=== PATIENT | male | born 1965 | race Two or more races ===

== ENCOUNTER 2021-06-15 10:02 | Outpatient (REF) | payer OTHER, SELFPAY ==
[2021-06-15 13:36] LABS: MANUAL DIFF FLAG NO
[2021-06-15 13:51] LABS: Basophils Percent Auto 0.4 % (0-2); Eosinophils Absolute Auto 0.1 X10*3/uL (0.0-0.4); Eosinophils Percent Auto 1.4 % (0-4); Hematocrit 44.3 % (42-52); Hemoglobin 14.3 g/dl (14.0-18.0); Imm Gran Abs Auto 0.01 X10*3/uL (0.00-0.03); Imm Gran Pct Auto 0.1 % (0.0-0.4); Lymphocytes Percent Auto 28.3 % (20-40); Mean Corpuscular HGB Conc 32.3 g/dl (31.0-36.0); Mean Corpuscular Hemoglobin 28.3 pg (27.0-33.0); Mean Corpuscular Volume 87.7 fL (80-98); Mean Platelet Volume 12.3 fL (9.4-12.4); Monocytes Absolute Auto 0.6 X10*3/uL (0.1-1.2); Monocytes Percent Auto 7.8 % (2-11); Neutrophils Absolute Auto 4.4 X10*3/uL (2.0-8.3); Platelet Count 215 X10*3/uL (160-400); Red Blood Count 5.05 X10*6/uL (4.60-5.80); Red Cell Distribution Width 12.8 % (11.0-16.0)
[2021-06-15 15:05] LABS: Alanine Aminotransferase 19 U/L (0-40); Albumin Level 4.5 g/dL (3.5-5.0); Alkaline Phosphatase 63 U/L (39-117); Anion Gap 16 (12-20); Aspartate Amino Transferase 18 U/L (5-37); Bilirubin Total 0.6 mg/dL (0.0-1.0); Blood Urea Nitrogen 16 mg/dL (9-16); Calcium 9.8 mg/dL (8.4-10.2); Carbon Dioxide 24 mmol/L (22-29); Chloride 103 mmol/L (96-108); Cholesterol 195 mg/dL; Estimated Glomerular Filt Rate > 60; Glucose Fasting 94 mg/dL (60-99); HDL Cholesterol 43 mg/dL; LDL Cholesterol Calculated 114 mg/dl; Potassium 4.4 mmol/L (3.3-5.1); Sodium 139 mmol/L (135-145); Total Protein 7.5 g/dL (6.5-8.0); Triglycerides 191 mg/dL
== END 2021-06-15 10:03 | disposition home or self-care (01) ==
LOC: HO.10HDL 10:02
PROVIDERS: Visit Provider Internal Medicine
DX: Z00.00 Encounter for general adult medical examination without abnormal findings (principal); E78.2 Mixed hyperlipidemia; I10 Essential (primary) hypertension; M54.16 Radiculopathy, lumbar region
CPT/HCPCS: 36415; 80053; 80061; 85025

== ENCOUNTER 2021-08-10 14:22 | Outpatient (REF) | payer OTHER, SELFPAY ==
[2021-08-10 16:21] LABS: C Reactive Protein 0.18 mg/dL (< or = 0.50); Lipase 34 U/L (8-78)
[2021-08-11 12:14] LABS: H Pylori Breath Test Negative (Negative)
[2021-08-14 17:36] LABS: Transglutaminase Ab IgG <1.0 U/mL; Transglutaminase IgA <1.0 U/mL
== END 2021-08-10 14:23 | disposition home or self-care (01) ==
LOC: HO.LAB 14:22
PROVIDERS: PCP Internal Medicine; Visit Provider Nurse Practitioner Family
DX: R10.11 Right upper quadrant pain (principal); K58.9 Irritable bowel syndrome, unspecified; R14.0 Abdominal distension (gaseous); R19.7 Diarrhea, unspecified; K21.9 Gastro-esophageal reflux disease without esophagitis
CPT/HCPCS: 36415; 83013; 83516; 83690; 86140; 99202

== ENCOUNTER → 2021-09-10 09:50 | Outpatient (BNVA) | payer OTHER, SELFPAY | PROVIDERS: PCP Internal Medicine; Visit Provider Surgery | DX: Z12.11 Encounter for screening for malignant neoplasm of colon (principal) | CPT/HCPCS: 99202 ==

== ENCOUNTER 2021-10-22 08:26 | Outpatient (REF) | payer OTHER, SELFPAY ==
[2021-10-22 10:33] LABS: Blood Urea Nitrogen 20 mg/dL (9-16); Estimated Glomerular Filt Rate > 60
[2021-10-22 11:22] LABS: Folate 17.4 ng/mL (> or = 4.0); Vitamin B12 320 pg/mL (200-900)
[2021-10-26 14:26] LABS: Vitamin D 25-OH, D2 <4 ng/mL; Vitamin D 25-OH, D3 10 ng/mL; Vitamin D 25-OH, Total 10 ng/mL (30-100)
[2021-10-28 18:41] LABS: Pancreatic Elastase-1 >500 mcg/g
== END 2021-10-22 08:27 | disposition home or self-care (01) ==
LOC: HO.LAB 08:26
PROVIDERS: PCP Internal Medicine; Visit Provider Nurse Practitioner Family
DX: R10.11 Right upper quadrant pain (principal); K58.9 Irritable bowel syndrome, unspecified; E55.9 Vitamin D deficiency, unspecified; R19.7 Diarrhea, unspecified
CPT/HCPCS: 36415; 82306; 82565; 82607; 82656; 82746; 84520; 99212

== ENCOUNTER 2021-11-05 06:36 | Outpatient (REF) | payer OTHER, SELFPAY ==
--- NOTE | ~2021-11-05 | CT_ITS ---
EXAMINATION: CT ABDOMEN AND PELVIS WITH CONTRAST CLINICAL INFORMATION: Abdominal pain. COMPARISON: None TECHNIQUE: Multidetector volumetric images were obtained from the superior aspect of the liver through the pubic symphysis following administration 85 mL of Omnipaque 350 intravenous contrast. Sagittal and coronal reformatted images were obtained on the technologist's workstation. Oral contrast: No This CT examination was performed using dose optimization techniques as appropriate, variously including the following: *Automated exposure control *Adjustment of mA and/or kV according to patient size (this includes techniques or standardized protocols for targeted exams where dose is matched to indication/reason for exam; i.e. extremities or head) *Use of iterative reconstruction technique DLP: 359 mGy-cm FINDINGS: LUNG BASES: The lung bases are clear of acute pneumonic process. There is a 2 mm pulmonary nodule right major fissure axial image 4/3 within the right major fissure likely a small intrafissural lymph node. The heart size is normal. LIVER, GALLBLADDER, AND BILIARY TREE: The liver is normal in size, shape, and attenuation. No focal hepatic lesion or biliary ductal dilatation is present. The gallbladder is unremarkable with no evidence of radiopaque gallstones, gallbladder wall thickening, or obvious pericholecystic inflammatory changes. PANCREAS: Unremarkable. SPLEEN: Unremarkable. ADRENAL GLANDS: Unremarkable. KIDNEYS AND URETERS: The kidneys are normal in size, shape, and attenuation. No hydronephrosis, hydroureter, or calculi seen. No perinephric stranding. BLADDER: Unremarkable. GASTROINTESTINAL TRACT: There is scattered stool and gas seen throughout the colon without significant distention. The small bowel loops are normal caliber. There is not cystic mild mural thickening involving the entire duodenum, the eighth flexure and the proximal jejunum. Question duodeno-jejunitis . There are appendix is normal caliber. The stomach is nondistended and appears unremarkable. ABDOMINAL WALL: No significant hernia is appreciated. LYMPH NODES: Normal. VASCULAR: Unremarkable. PELVIC VISCERA: Unremarkable. OSSEOUS STRUCTURES: There is no aggressive lytic or sclerotic process seen. CT/CT abdomen pelvis w con IMPRESSION: Diffuse mural thickening involving duodenum, DJ flexure and the proximal jejunum question small bowel enteritis. Mild constipation. Fleischner guidelines were followed.
[2021-11-05] MEDS: iohexoL 350 MG/ML 100 ML INFUS..BTL 85 ML IV (09:32)
== END 2021-11-05 06:37 | disposition home or self-care (01) ==
LOC: HO.CT 06:36
PROVIDERS: Visit Provider Nurse Practitioner Family
DX: R10.9 Unspecified abdominal pain (principal)
CPT/HCPCS: 74177; Q9967

== ENCOUNTER 2022-01-20 08:33 | Outpatient (REF) | payer OTHER, SELFPAY ==
[2022-01-25 12:25] LABS: Vitamin D 25-OH, D2 55 ng/mL; Vitamin D 25-OH, D3 6 ng/mL; Vitamin D 25-OH, Total 61 ng/mL (30-100)
== END 2022-01-20 08:34 | disposition home or self-care (01) ==
LOC: HO.LAB 08:33
PROVIDERS: PCP Internal Medicine; Referring Provider Internal Medicine; Visit Provider Nurse Practitioner Family
DX: R10.9 Unspecified abdominal pain (principal); K58.9 Irritable bowel syndrome, unspecified; K21.9 Gastro-esophageal reflux disease without esophagitis; E55.9 Vitamin D deficiency, unspecified
CPT/HCPCS: 36415; 82306; 99212

== ENCOUNTER 2022-02-03 08:14 | Day surgery (SDC) | payer OTHER, SELFPAY ==
--- NOTE | 2022-02-02 12:45 | HO.ANESPROP2 ---
HPI - Anesthesia Eval Consult details Narrative: 56yo M for Upper Endoscopy and Colonoscopy PMFSH Active Problems Active Problems: All Active Problems (Updated 09/10/21 @ 10:27 by Luiz Phillips MD) Colon cancer screening (Acute) Past Medical History Medical History Colon cancer screening Hx of hemorrhoids Family History Family History Brother HTN (hypertension) Surgical History Surgical History Hx of colonoscopy Social History Social History Alcohol intake: current Patient Tobacco Use Status: Never used Tobacco Meds Allergies Allergy/AdvReac Type Severity Reaction Status Date / Time No Known Allergies Allergy Verified 01/20/22 08:40 [No Known Allergies*] Home Medications Medication Instructions Recorded Confirmed Last Taken Type rosuvastatin 10 mg tablet 10 mg PO BEDTIME 08/10/21 09/10/21 Unknown History triamcinolone acetonide 0.5 % appl TOPICAL 08/10/21 09/10/21 Unknown History topical cream valsartan 160 1 tab PO DAILY 08/10/21 09/10/21 Unknown History mg-hydrochlorothiazide 12.5 mg tablet Exam Exam Date and Time: February 02, 2022 1245 Pertinent Lab Results Pertinent Lab Results: Laboratory Tests 06/15/21 06/15/21 10/22/21 10:07 10:07 09:46 WBC 7.0 Hgb 14.3 Hct 44.3 Plt Count 215 Sodium 139 Potassium 4.4 Chloride 103 Carbon Dioxide 24 BUN 20 H Creatinine 0.98 Assessment and Plan Assessment Anesthesia Assessment: Chart Reviewed
--- NOTE | 2022-02-03 08:09 | HO.ANESPROP2 ---
PMF Active Problems Active Problems: All Active Problems (Updated 09/10/21 @ 10:27 by Luiz Phillips MD) Colon cancer screening (Acute) Past Medical History Medical History Colon cancer screening Hx of hemorrhoids Family History Family History Brother HTN (hypertension) Family history of problems with anesthesia: No Surgical History Surgical History Hx of colonoscopy History of Problems with Anesthesia: No Social History Social History Alcohol intake: current Patient Tobacco Use Status: Never used Tobacco Use of substances other than those prescribed or required for medical reasons: No Advance Directives: No Advance Directives Information Provided: Yes Nutrition Risks: No Nutritional Risk Meds Allergies Allergy/AdvReac Type Severity Reaction Status Date / Time No Known Allergies Allergy Verified 01/20/22 08:40 [No Known Allergies*] Home Medications Medication Instructions Recorded Confirmed Last Taken Type rosuvastatin 10 mg tablet 10 mg PO BEDTIME 08/10/21 09/10/21 Unknown History triamcinolone acetonide 0.5 % appl TOPICAL 08/10/21 09/10/21 Unknown History topical cream valsartan 160 1 tab PO DAILY 08/10/21 09/10/21 Unknown History mg-hydrochlorothiazide 12.5 mg tablet Exam Exam Date and Time: February 03, 2022 0809 Airway Mallampati Class: II TM Dist: >3cm Neck ROM: Full Heart: RRR Lungs: CTA Assessment and Plan Final Anesthetic Review Family History of Problems with Anesthesia: No History of Problems with Anesthesia: No ASA Class: II Final Preanesthetic Review: No Changes in Pt Med Stat, Meds/Allgs Chart Reviewed, Consent Obtained/Reviewed and Anes Risks/Benef Reviewed Patient Risk: Low Procedure Risk: Low Anesthetic Plan Anesthetic Plan: MAC: Disposition: Standard PACU
[2022-02-03 08:22] VITALS: BMI 23.6
[2022-02-03 08:40] VITALS: BP 113/68; PULSE 86; RESP 16; TEMP 36.7; O2SAT 99
[2022-02-03] MEDS: Lactated Ringers 1,000 ML 100 ML IVCONT (08:41)
--- NOTE | 2022-02-03 09:04 | MHC.SHP ---
Pre-Procedural Eval Section A Date of Service: 02/03/22 Section B Chief Complaint: IBS,abdominal pain Details of Present Illness: post prandial abdominal pain Relevant Family History (Specify if Yes): No Relevant Social History: None Present Medications: see Short Stay Collaborative assessment Medical History: Significant History (Colon cancer screening Hx of hemorrhoids) Allergies: Allergies Allergy/AdvReac Type Severity Reaction Status Date / Time No Known Allergies Allergy Verified 01/20/22 08:40 [No Known Allergies*] Review of Systems Sugical H&P ROS: Negative: Constitution, Cardiovascular, Respiratory, Neurological, Psychiatric, Hem-Onc, Allergic/Immunologic, Gastrointestinal, Genitourinary, Musculoskeletal, Integumentary, Endocrine and Eyes/Ears/Nose/Throat Exam Surgical H&P Exam: Normal: HEENT, Normal: Heart, Normal: Lungs, Normal: Extremities, Normal: Abdomen, Normal: Skin and Normal: Neurological Plan Diagnosis/Plan: Unchanged I have reviewed the history and physical and performed a pertinent physical examination on my patient. No changes have occurred unless specified.
--- NOTE | 2022-02-03 09:48 | PM.OP ---
Brief Operative Note Date of Service: 02/03/22 Pre-op diagnosis: IBS,abdominal pain Post-op diagnosis: same Procedure: see op note Surgeon: Jannette Morton MD Anesthesia: MAC Was an Head Knitting Machine Fixer used for this Procedure?: No Estimated blood loss (mL): 0 Condition: stable Disposition: PACU
--- NOTE | 2022-02-03 09:49 | W.PM.OPN ---
Operative Note Operative Note Date of Service: 02/03/22 Narrative: Operative Information Procedure Description: EGD, Colonoscopy Indication: IBS,abdominal pain Anesthesia: MAC FLEXIBLE TRANSORAL UPPER GASTROINTESTINAL ENDOSCOPY AND COLONOSCOPY PROCEDURE NOTE UPPER ENDOSCOPY Consent: Indications for the procedure and potential complications of bleeding, perforation, reaction to medications and missed diagnosis were discussed with the patient and informed consent was obtained. Instrument: Olympus GIF H 190 J mid size upper endoscope Monitoring: Vital signs and clinical assessment, continuous EKG monitoring, Pulse oximetry, Carbon Dioxide monitoring and blood pressure monitoring were done throughout the procedure. Procedure: The patient was placed in the left lateral decubitis position and pre-procedure medications were administered and a bite block was placed. The endoscope was inserted into the mouth and advanced under direct vision to the third part of duodenum. A careful inspection was made as the upper endoscope was withdrawn including a retroflexed examination of the proximal stomach; Findings and interventions are described below. Findings: Larynx:normal Esophagus: GE junction at 40 cm, diaphragm hiatus at 40 cm, mild esophagitis at GEJ, bx taken Stomach: Mild erythema. Biopsies were obtained. Grade 2 flap valve on retroflexed examination of the cardia. There appeared to be reduced gastric motility. Duodenum: Normal bulb and descending duodenum, bx taken Intervention: Biopsies as noted above COLONOSCOPY Instrument: Olympus variable stiffness pediatric scope 190L Colonoscopy Monitoring: Vital signs and clinical assessment, continuous EKG monitoring, Pulse oximetry, Carbon Dioxide monitoring and blood pressure monitoring were done throughout the procedure. Colon withdrawal time was 9 minutes. Procedure: The patient was placed in the left lateral decubitis position and pre-procedure medications were administered. After a digital rectal examination of the ano-rectum, the video colonoscope was inserted into the rectum and advanced through the colon to the cecum/TI. The colonoscope was slowly withdrawn in a retrograde panoramic fashion and the colon mucosa was carefully examined including a retroflexed view of the rectum. Findings and interventions are described below. Procedure Difficulty: easy Findings: Terminal Ileum-normal, bx taken Random colon bx taken Cecum:normal Ascending Colon: 9-10 mm sessile polyp removed with cold snare Transverse Colon -normal Descending Colon:normal Sigmoid Colon: normal Rectum: Retroflexion with mdoerat sized internal hemorrhoids, grade I Anorectum - normal Colon preparation: [place] Bowel Preparation Scale Right colon; 2 Transverse colon: 2 Left colon; 2 (0 = Unprepared colon segment with mucosa not seen due to solid stool that cannot be cleared. 1 = Portion of mucosa of the colon segment seen, but other areas of the colon segment not well seen due to staining, residual stool and/or opaque liquid. 2 = Minor amount of residual staining, small fragments of stool and/or opaque liquid, but mucosa of colon segment seen well. 3 = Entire mucosa of colon segment seen well with no residual staining, small fragments of stool or opaque liquid) Impression and Post Procedure Diagnosis: Endoscopy Findings: esophagitis gastritis possible gastroparesis Colonoscopy Findings: polyp internal hemorrhoids Plan: Await Pathology results Repeat Colonoscopy in 5 years if adenomatous polyp, 10 yrs if benign or earlier if clinically indicated High fiber diet leaflet avoid straining at stool, epsom salts and sitz bath, anusol supps or cream If gastric bx neg then consider GES to r/o gastroparesis , also US upper abdomen and doppler to r/o SMA syndrome or celiac axis compression Above findings were reviewed with the patient and relevant handouts were provided if indicated.
[2022-02-03 09:54] VITALS: BP 94/54; PULSE 63; RESP 15; TEMP 36.1; O2SAT 97
[2022-02-03 10:09] VITALS: BP 113/79; PULSE 71; RESP 15; O2SAT 100
[2022-02-03 10:24] VITALS: BP 130/76; PULSE 60; RESP 16; TEMP 36.1; O2SAT 99
--- NOTE | 2022-02-03 10:41 | PC.NURSE ---
seen by dr. Nagel in PACU for c/o left eye being painful and scratchy evaluated, no new orders received patient cleared for discharge
--- NOTE | 2022-02-03 12:06 | HO.POSTANES ---
Post Anesthesia Evaluation Post Anesthesia Evaluation Vital Signs: Vital Signs Temp Pulse Resp BP Pulse Ox 02/03/22 10:24 97.0 F 60 16 130/76 99 02/03/22 10:09 71 15 113/79 100 02/03/22 09:54 97.0 F 63 15 94/54 L 97 02/03/22 08:40 98.0 F 86 16 113/68 99 Anesthesia: Monitored Mental Status: Awake Pain Control: Satisfactory Nausea/Vomiting: None Hydration: Adequate Anesthesia-Related Issues: No Anes. Related Issues
== END 2022-02-03 10:56 | disposition home or self-care (01) ==
PROVIDERS: PCP Internal Medicine; Visit Provider Internal Medicine Gastroenterology
PROC: (CPT 45385; principal; 2022-02-03 09:20)
DX: K58.9 Irritable bowel syndrome, unspecified (principal); R10.32 Left lower quadrant pain; D12.2 Benign neoplasm of ascending colon; K64.0 First degree hemorrhoids; M54.50 Low back pain, unspecified; K59.00 Constipation, unspecified; K21.9 Gastro-esophageal reflux disease without esophagitis; K29.50 Unspecified chronic gastritis without bleeding; K20.90 Esophagitis, unspecified without bleeding; K44.9 Diaphragmatic hernia without obstruction or gangrene
CPT/HCPCS: 45385; 45380; 43239; 88305; 88342

== ENCOUNTER → 2022-04-09 07:52 | Outpatient (REF) | payer OTHER, SELFPAY ==
--- NOTE | ~2022-04-09 | NM_ITS ---
EXAMINATION: RADIONUCLIDE SOLID FOOD GASTRIC EMPTYING 4-HOUR STUDY CLINICAL INFORMATION: Satiety COMPARISON: No previous gastric emptying study is available for comparison. TECHNIQUE: A standard meal consisting of 4 oz of Egg Beaters brand tagged with 910 microcuries Tc-99m Sulfur Colloid, 8 oz water and 2 slices of toast with jelly was administered orally to the patient. Images were obtained using a dual head gamma camera in the anterior and posterior projections over of the stomach immediately post ingestion and at hourly intervals up to 3 hours post ingestion. Images were not obtained at 4 hours due to the minimal retention at 3 hours. The anterior and posterior counts at each time interval were averaged using the geometric mean and expressed as percentage of the immediate post ingestion counts. FINDINGS: There is good visualization of activity in the stomach immediately post ingestion. As the study progresses, there is good clearance of activity from the stomach and visualization of progressively increasing small bowel activity. By the end of the study, there is almost no retention noted in the stomach. Retention in the stomach at each time interval was: 1 hour 57% (normal 37%-90%) 2 hours 12% (normal 30%-60%) 3 hours 4% 4 hours (Not Obtained) (normal 0%-10%) NM/NM gastric emptying study IMPRESSION: Normal solid food gastric emptying study.
== END ==
LOC: HO.NUCMED 07:52
PROVIDERS: PCP Internal Medicine; Visit Provider Internal Medicine Gastroenterology
DX: R68.81 Early satiety (principal)
CPT/HCPCS: 78264; A9541

== ENCOUNTER 2022-06-04 12:21 | Outpatient (REF) | payer OTHER, SELFPAY ==
--- NOTE | ~2022-06-04 | US_ITS ---
EXAMINATION: US superior mesenteric artery CLINICAL INFORMATION: Left upper quadrant abdominal pain COMPARISON: None TECHNIQUE: Color and spectral Doppler evaluation of the abdominal aorta and mesenteric arteries. FINDINGS: ABDOMINAL AORTA: The visualized proximal segment is normal in caliber. Patent color flow with normal arterial waveforms and velocities. CELIAC ARTERY: Normal upstroke and diastolic flow. Peak systolic velocity in the supine positioning measures 92 cm/s. Peak systolic velocity in the erect position and measures 74 cm/s. SUPERIOR MESENTERIC ARTERY: Normal upstroke and diastolic flow. Peak systolic velocity in the proximal segment measures 290 cm/s. Peak systolic velocity in the mid segment measures 168 cm/s. Peak systolic velocity distal segment measures 190 cm/s. No acute disease superior mesenteric artery is widely patent and normal in appearance from a CT from 11/05/2021. INFERIOR MESENTERIC ARTERY: Normal upstroke and diastolic flow. Peak systolic velocity measures 144 cm/s. SPLENIC ARTERY: Normal upstroke and diastolic flow. Peak systolic velocity measures 184 cm/s. HEPATIC ARTERY: Normal upstroke and diastolic flow. Peak systolic velocity measures 70 cm/s. INFERIOR VENA CAVA: Visualized portions are normal. US/US SMA IMPRESSION: Patent flow within the mesenteric vessels. Velocity in the superior mesenteric artery is elevated. Prior CT performed on 11/05/2021 demonstrated widely patent and normal appearing superior mesenteric artery. These findings are discordant. Further evaluation with dedicated CTA or MRA may be useful Normal velocities and waveforms seen in the celiac artery and inferior mesenteric artery
== END 2022-06-04 12:22 | disposition home or self-care (01) ==
LOC: HO.US 12:21
PROVIDERS: Visit Provider Internal Medicine Gastroenterology
DX: R10.12 Left upper quadrant pain (principal)
CPT/HCPCS: 93976

== ENCOUNTER → 2022-08-02 10:10 | Outpatient (BNVA) | payer OTHER, SELFPAY | PROVIDERS: PCP Internal Medicine; Referring Provider Internal Medicine; Visit Provider Nurse Practitioner Family | DX: R10.12 Left upper quadrant pain (principal); R19.8 Other specified symptoms and signs involving the digestive system and abdomen | CPT/HCPCS: 99212 ==

== ENCOUNTER 2022-10-11 14:06 | Outpatient (REF) | payer OTHER, SELFPAY ==
--- NOTE | ~2022-10-11 | CT_ITS ---
EXAMINATION: CT ANGIOGRAM ABDOMEN CLINICAL INFORMATION: Left upper quadrant pain COMPARISON: None TECHNIQUE: Multiple axial images were obtained through the abdomen following the administration of 80 mL Omnipaque 350 intravenous contrast. MIPS images were created and reviewed. This CT examination was performed using dose optimization techniques as appropriate, variously including the following: *Automated exposure control *Adjustment of mA and/or kV according to patient size (this includes techniques or standardized protocols for targeted exams where dose is matched to indication/reason for exam; i.e. extremities or head) *Use of iterative reconstruction technique DLP: 160 mGy-cm FINDINGS: Lower chest: Unremarkable. There are no pleural effusions. Liver: Normal in size and attenuation. No focal lesions. Gallbladder and bile ducts: The gallbladder is normal. No intrahepatic or extrahepatic biliary ductal dilatation. Spleen: Normal in size and attenuation. Pancreas: Unremarkable. Adrenal glands: Unremarkable. Right kidney: The right kidney is normal. There is no hydronephrosis or hydroureter. Left kidney: The left kidney is normal. There is no hydronephrosis or hydroureter. Lymph nodes: There is no lymphadenopathy in the abdomen or pelvis. Gastrointestinal tract: The visualized portions of the stomach, small, and large bowel are normal in course and caliber. Vasculature: The abdominal aorta is normal in course and caliber. No significant atherosclerotic disease. The origin of the celiac artery is diminutive. There is a separate origin of the common hepatic artery arising from the aorta which appear significantly stenosed. The predominant blood supply to the hepatic artery arises from GDA collaterals via the SMA. Additional findings: There is no intraperitoneal free air or fluid. Soft tissues: Unremarkable. Osseous structures: No lytic or blastic lesions identified. CT/CT angio abdomen IMPRESSION: 1. Diminutive origin of the celiac artery. 2. The common hepatic artery arising from the aorta without significant stenosis at its origin.. The predominant blood supply to the hepatic artery arises from GDA collaterals via the SMA.
[2022-10-11] MEDS: iohexoL 350 MG/ML 100 ML INFUS..BTL IV (14:57)
[2022-10-12 08:05] LABS: Creatinine POC 0.8 mg/dL (0.5-1.4); GFR POC > 60
== END 2022-10-11 14:07 | disposition home or self-care (01) ==
LOC: HO.CT 14:06
PROVIDERS: Visit Provider Nurse Practitioner Family
DX: R10.12 Left upper quadrant pain (principal)
CPT/HCPCS: 74175; 82565; Q9967

== ENCOUNTER → 2022-10-12 08:00 | Outpatient (BNVA) | payer OTHER, SELFPAY | PROVIDERS: PCP Internal Medicine; Referring Provider Internal Medicine; Visit Provider Nurse Practitioner Family | DX: R10.12 Left upper quadrant pain (principal); R14.0 Abdominal distension (gaseous); I70.90 Unspecified atherosclerosis | CPT/HCPCS: 99212 ==

== ENCOUNTER → 2022-11-17 08:14 | Outpatient (BNVA) | payer OTHER, SELFPAY | PROVIDERS: PCP Internal Medicine; Visit Provider Nurse Practitioner Family | DX: K21.9 Gastro-esophageal reflux disease without esophagitis (principal); R14.0 Abdominal distension (gaseous); R10.12 Left upper quadrant pain | CPT/HCPCS: 99212 ==

== ENCOUNTER 2022-12-13 09:58 | Outpatient (REF) | payer OTHER, SELFPAY ==
[2022-12-13 10:40] LABS: MANUAL DIFF FLAG NO
[2022-12-13 10:43] LABS: Basophils Percent Auto 0.5 % (0-2); Eosinophils Absolute Auto 0.1 X10*3/uL (0.0-0.4); Eosinophils Percent Auto 1.8 % (0-4); Hematocrit 42.2 % (42.0-52.0); Hemoglobin 13.9 g/dl (14.0-18.0); Imm Gran Abs Auto 0.01 X10*3/uL (0.00-0.03); Imm Gran Pct Auto 0.2 % (0.0-0.4); Lymphocytes Absolute Auto 1.7 X10*3/uL (1.2-4.9); Lymphocytes Percent Auto 30.6 % (20-40); Mean Corpuscular HGB Conc 32.9 g/dl (31.0-36.0); Mean Corpuscular Hemoglobin 28.5 pg (27.0-33.0); Mean Corpuscular Volume 86.5 fL (80.0-98.0); Mean Platelet Volume 12.1 fL (9.4-12.4); Monocytes Absolute Auto 0.5 X10*3/uL (0.1-1.2); Monocytes Percent Auto 8.7 % (2-11); Neutrophils Absolute Auto 3.2 x10*3/uL (2.0-8.3); Neutrophils Percent Auto 58.2 % (45-73); Platelet Count 201 X10*3/uL (160-400); Red Blood Count 4.88 X10*6/uL (4.60-5.80); Red Cell Distribution Width 12.4 % (11.0-16.0); White Blood Count 5.5 X10*3/uL (4.8-10.8)
[2022-12-13 12:11] LABS: Alanine Aminotransferase 66 U/L (0-40); Albumin Level 4.4 g/dL (3.5-5.0); Alkaline Phosphatase 61 U/L (39-117); Anion Gap 16 (12-20); Aspartate Amino Transferase 38 U/L (5-37); Bilirubin Total 0.9 mg/dL (0.0-1.0); Blood Urea Nitrogen 18 mg/dL (9-16); Calcium 9.3 mg/dL (8.4-10.2); Carbon Dioxide 27 mmol/L (22-29); Chloride 103 mmol/L (96-108); Cholesterol 204 mg/dL; Estimated Glomerular Filt Rate > 60; Glucose Fasting 94 mg/dL (60-99); HDL Cholesterol 41 mg/dL; LDL Cholesterol Calculated 137 mg/dl; Potassium 4.5 mmol/L (3.3-5.1); Sodium 141 mmol/L (135-145); Total Protein 7.1 g/dL (6.5-8.0); Triglycerides 130 mg/dL
[2022-12-13 12:30] LABS: Prostate Specific Antigen Scr 0.44 ng/mL (<0.05-4.0)
[2022-12-16 23:04] LABS: Vitamin D 25-OH, D2 9 ng/mL; Vitamin D 25-OH, D3 9 ng/mL; Vitamin D 25-OH, Total 18 ng/mL (30-100)
== END 2022-12-13 09:59 | disposition home or self-care (01) ==
LOC: HO.10HDL 09:58
PROVIDERS: PCP Internal Medicine; Visit Provider Nurse Practitioner Family
DX: Z00.00 Encounter for general adult medical examination without abnormal findings (principal); Z12.5 Encounter for screening for malignant neoplasm of prostate; E78.2 Mixed hyperlipidemia; E55.9 Vitamin D deficiency, unspecified; I10 Essential (primary) hypertension
CPT/HCPCS: 36415; 80053; 80061; 82306; 84153; 85025

== ENCOUNTER → 2023-02-08 09:07 | Outpatient (BNVA) | payer OTHER, SELFPAY | PROVIDERS: PCP Internal Medicine; Visit Provider Nurse Practitioner Family | DX: R14.0 Abdominal distension (gaseous) (principal); R10.12 Left upper quadrant pain; K21.9 Gastro-esophageal reflux disease without esophagitis | CPT/HCPCS: 99212 ==

== ENCOUNTER 2023-08-16 08:49 | Outpatient (AMB) | payer OTHER, SELFPAY ==
--- NOTE | 2023-08-16 08:52 | MHC.OFFVIS ---
Intake Vital Signs 08/16/23 08:53 Height 5 ft 8 in Weight 173 lb 4.533 oz BMI 26.3 BP 113/82 Blood Pressure Location Rt brachial Position Sitting Pulse 54 Intake Visit Reasons: 6 mnth follow up Intake Note: Faith presents in office today in 6 months follow up of GERD. CC: Patient reports doing well and denies having any new GI symptoms or concerns. Explosives Engineer Required: No Accompanied by: Self / Same As Patient Allergies No Known Allergies [No Known Allergies*] Allergy (Verified 02/08/23 09:16) HPI 6 mnth follow up HPI Details LAST VISIT Postprandial abdominal bloating Occasional postprandial abdominal bloating. Went over with patient about certain food that he. He does admit that certain food made him more bloated than others. No FODMAP diet discussed patient. List of food recommended as well as list of being food to avoid given to patient again. Will stop Creon patient did not see much of a difference with the bloating. Simethicone sent to pharmacy to help his symptoms. GERD (gastroesophageal reflux disease) Continue current dose of omeprazole. Patient was also encouraged to avoid dietary triggers and late night snacking. Stay upright for minimum 3 hours after meals discussed patient LUQ abdominal pain Patient no longer has left lower quadrant pain. He does report to have a left lower back pain. Patient was encouraged to continue with exercises that were recommended by physical therapy. I will see patient in 6 months, sooner on as needed basis. Patient is agreeable to this plan and verbalizes understanding of instructions. He was given the opportunity to ask questions and all questions answered. ? Thank you for allowing me to participate in his care Plan Medications New simethicone 125 mg PO BID-QID PRN 120 caps 3RF abdominal distension K21.9 - Gastro-esophageal reflux disease without esophagitis Refilled omeprazole 20 mg PO DAILY 90 caps 2RF K21.9 - Gastro-esophageal reflux disease without esophagitis Discontinued dnscby-nbhekvgk-zckudso 12,000-38,000 -60,000 unit (Creon) administer with meals and/or snacks Discontinued Reason: Doctor's Order 1 cap PO QID 120 caps 3RF R10.9 - Unspecified abdominal pain TODAY'S VISIT: Patient is here today for follow-up. Patient reports that he has been feeling well. Denies any abdominal pain or discomfort. However patient does admit that depending on what he eats he might have a postprandial abdominal bloating and left lower quadrant discomfort. Patient reports that he is moving his bowels well without any issues. Denies any melena, hematochezia, unintentional weight loss or ribbon like stools. Patient denies any dyspepsia, dysphagia or odynophagia. Patient had elevation in his liver enzymes back in November, abdominal CT scan does not show any lesion, normal liver seen. Patient denies any RUQ abdominal pain or discomfort. Denies any nausea or vomiting PFSH Medical History Postprandial abdominal bloating Colon cancer screening Hx of hemorrhoids Surgical History Hx of colonoscopy Family History Brother HTN (hypertension) Social History Alcohol intake: current Patient Tobacco Use Status: Never used Tobacco Review of Systems Const Denies weight gain and Denies weight loss ENT Reports no additional complaints, Denies dysphagia and Denies odynophagia Card Reports no additional complaints Resp Reports no additional complaints GI Denies abdominal pain, Denies belching, Denies melena, Denies bloating, Denies change in bowel habits, Denies dysphagia, Denies excessive flatus, Denies dyspepsia, Denies heartburn, Denies diarrhea, Denies loose stools, Denies nausea, Denies odynophagia and Denies vomiting Reports no additional complaints Musc Reports no additional complaints Neuro Reports no additional complaints Psych Reports no additional complaints Endo Reports no additional complaints Physical Exam Vital Signs: Last Vital Signs Pulse 54 08/16/23 08:53 BP 113/82 08/16/23 08:53 BMI result Body Mass Index 26.3 Const General: healthy appearing, no acute distress and well developed Nutritional Appearance: well nourished Orientation/consciousness: patient oriented x3 HEENT Head: Yes normal to inspection, Yes normocephalic and Yes atraumatic Face and sinus: Yes normal facial exam Mouth: Normal oral and palatal mucosa present Throat: Yes posterior oropharynx normal, Yes tonsils normal and Yes uvula midline Eyes General: appearance normal, both eyes and all related structures Neck Neck: Yes normal visual inspection, Yes full ROM and Yes trachea midline Thyroid: Thyroid normal Resp Effort & Inspection: normal respiratory effort, able to speak in complete sentences, no tracheal deviation and symmetric chest movement Auscultation: clear to auscultation bilaterally Cardio Rate: regular rate Heart sounds: S1 normal heart sound present and S2 normal heart sound present GI Inspection: Yes normal to inspection and No distended Palpation (GI): Soft to palpation, not firm, nontender and No hepatosplenomegaly present Auscultation: normal bowel sounds General: Yes no CVA tenderness Back/Spine/Pelvis Back: no CVA tenderness Skin General skin exam: elasticity normal, turgor normal and dry skin Neuro General: patient oriented x3 Psych Appearance: grossly normal Mental Status: mental status grossly normal Assessment & Plan Assessment & Plan (1) Postprandial abdominal bloating: Code(s): R14.0 - Abdominal distension (gaseous) (2) Elevated liver enzymes: Code(s): R74.8 - Abnormal levels of other serum enzymes Plan Will repeat liver enzymes. If patient continues to have elevation will do limited abdominal ultrasound with liver elastography and other workup. We will rule out viral hepatitis, autoimmune disorders. I will see patient in 6 months, sooner on as needed basis. Patient is agreeable to this plan and verbalizes understanding of instructions. He was given the opportunity to ask questions and all questions answered. Thank you for allowing me to participate in his care Orders: Orders Liver Panel Today R10.9 - Unspecified abdominal pain Coding Level of Care Code Est Pt Level 3 (65451) Diagnoses Postprandial abdominal bloating R14.0 Elevated liver enzymes R74.8 Time Spent (min) 25 Comment 15 minutes spent with patient and additional 10 minutes spent reviewing his records
[2023-08-16 08:53] VITALS: BP 113/82; PULSE 54; BMI 26.3
== END 2023-08-16 09:26 | disposition home or self-care (01) ==
PROVIDERS: Visit Provider Nurse Practitioner Family
DX: R14.0 Abdominal distension (gaseous) (principal); R74.8 Abnormal levels of other serum enzymes
CPT/HCPCS: 99213

== ENCOUNTER 2023-08-16 08:49 | Outpatient (REF) | payer OTHER, SELFPAY ==
[2023-08-16 11:02] LABS: Alanine Aminotransferase 133 U/L (0-40); Albumin Level 4.4 g/dL (3.5-5.0); Alkaline Phosphatase 72 U/L (39-117); Aspartate Amino Transferase 66 U/L (5-37); Bilirubin Direct 0.3 mg/dL (0.0-0.5); Bilirubin Total 0.9 mg/dL (0.0-1.0); Total Protein 7.9 g/dL (6.5-8.0)
== END 2023-08-16 08:50 | disposition home or self-care (01) ==
LOC: HO.LAB 08:49
PROVIDERS: PCP Internal Medicine; Visit Provider Nurse Practitioner Family
DX: R10.9 Unspecified abdominal pain (principal); R14.0 Abdominal distension (gaseous); R74.8 Abnormal levels of other serum enzymes
CPT/HCPCS: 36415; 80076; 99212

== ENCOUNTER 2023-08-19 09:26 | Outpatient (REF) | payer OTHER, SELFPAY ==
[2023-08-19 10:16] LABS: Prothrombin Time 11.6 SEC (11.1-13.3)
[2023-08-19 10:34] LABS: C Reactive Protein 0.23 mg/dL (< or = 0.50); Gamma Glutamyl Transpeptidase 58 U/L (11-51)
[2023-08-19 10:43] LABS: Erythrocyte Sedimentation Rate 3 MM/HR (0-15)
[2023-08-19 10:50] LABS: Ferritin 297 ng/mL (20-250)
[2023-08-22 12:03] LABS: Ceruloplasmin 22 mg/dL (18-36)
[2023-08-22 12:39] LABS: Alpha Fetoprotein 3.5 ng/mL (<6.1)
[2023-08-23 12:23] LABS: Smooth Muscle Antibody <20 U (<20)
[2023-08-23 13:09] LABS: Mitochondrial Antibodies NEGATIVE (NEGATIVE)
[2023-08-24 08:25] LABS: HIV AB/AG NON-REACTIVE (Nonreactive)
[2023-08-24 08:27] LABS: ~Hepatitis A Antibody IgM REACTIVE (Nonreactive)
[2023-08-24 08:28] LABS: ~Hepatitis B Surface Antibody NON-REACTIVE (Nonreactive)
[2023-08-24 08:31] LABS: Hepatitis B Surface Antigen NON-REACTIVE (Negative)
[2023-08-24 08:33] LABS: Hepatitis B Core Antibody NON-REACTIVE (Nonreactive); ~Hepatitis C Antibody NON-REACTIVE (Nonreactive)
[2023-08-25 15:48] LABS: FIB-ALT 115 U/L (9-46); FIB-Alpha-2-Macroglobulin 152 mg/dL (106-279); FIB-Apolipoprotein A1 150 mg/dL (94-176); FIB-GGT 52 U/L (3-85); FIB-Haptoglobin 134 mg/dL (43-212); FIB-Total Bilirubin 0.9 mg/dL (0.2-1.2); Liver Fibrosis Score 0.28; Liver Fibrosis Stage F1; Nec Inflam Act Grade A2-A3; Nec Inflam Act Score 0.62
== END 2023-08-19 09:27 | disposition home or self-care (01) ==
LOC: HO.LAB 09:26
PROVIDERS: PCP Internal Medicine; Visit Provider Nurse Practitioner Family
DX: Z11.4 Encounter for screening for human immunodeficiency virus [HIV] (principal); R79.89 Other specified abnormal findings of blood chemistry; R74.8 Abnormal levels of other serum enzymes; K58.9 Irritable bowel syndrome, unspecified; R74.01 Elevation of levels of liver transaminase levels; R14.0 Abdominal distension (gaseous)
CPT/HCPCS: 36415; 81596; 82105; 82390; 82728; 82977; 85610; 85652; 86015; 86140; 86381; 86704; 86706; 86709; 86803; 87340; 87389

== ENCOUNTER 2023-09-21 09:22 | Outpatient (REF) | payer OTHER, SELFPAY ==
--- NOTE | ~2023-09-21 | US_ITS ---
EXAMINATION: US ABDOMEN LIMITED WITH LIVER ELASTOGRAPHY CLINICAL INFORMATION: Elevated liver transaminase levels. COMPARISON: CTA abdomen dated 10/11/2022 CT abdomen and pelvis dated 11/05/2021. TECHNIQUE: Real-time imaging of the abdominal viscera. Noninvasive ultrasound liver fibrosis assessment is performed using Mila ElastPQ point quantification shear wave elastography (2D-SWE) with a C5-2 MHz transducer. Multiple elastography samples are obtained. FINDINGS: PANCREAS: There is mild increase in echotexture, suggesting possible fatty infiltration. The visualized pancreatic head and body are normal in appearance. The remainder of the pancreas is obscured from visualization by the overlying bowel gas. LIVER: The liver demonstrates normal contour and increased echogenicity, with pericholecystic sparing. No focal lesion or intrahepatic biliary duct dilatation. The right lobe measures 17.6 cm in length. The left lobe measures 8.7 cm in length. Portal flow is towards the liver (hepatopetal). Shear wave liver elastography median stiffness is 2.2 m/s (reference: normal median stiffness is 1.3 m/s or less). IQR/median stiffness to assess sampling precision is 0.12 (reference: good quality data set is IQR/median stiffness of 0.15 or less). GALLBLADDER: Normal. The gallbladder is physiologically distended without evidence of stones, sludge, polyps, wall thickening or pericholecystic fluid. COMMON BILE DUCT: Normal in caliber measuring 0.3 cm in diameter. RIGHT KIDNEY: Normal. No hydronephrosis. No renal calculi or focal parenchymal lesions. The kidney measures 10.1 cm in maximum dimension. FREE FLUID: None. US/US abdomen medina w elastography IMPRESSION: 1. There is generalized increase in hepatic echotexture, consistent with fatty infiltration or hepatocellular disease. Please correlate clinically. Characteristic pericholecystic sparing favors fatty infiltration. No focal hepatic mass or intrahepatic biliary dilatation is seen. 2. There is mild hepatosplenomegaly. 3. Liver elastography: Measuremensts are consistent with compensated advanced chronic liver disease. REFERENCE: Society of Radiologists in Ultrasound Liver Stiffness Thresholds (2019): LIVER STIFFNESS THRESHOLDS: *Liver Stiffness equal or less than 1.3 m/s: High probability of being normal. *Liver Stiffness less than 1.7 m/s: In the absence of other known clinical signs, rules out compensated advanced chronic liver disease. *Liver Stiffness 1.7-2.1 m/s: Suggestive of compensated advanced chronic liver disease but need further test for confirmation. *Liver Stiffness over 2.1 m/s: Rules in compensated advanced chronic liver disease. *Liver Stiffness over 2.4 m/s: Suggestive of clinically significant portal hypertension. QUALITY OF DATA SET: *IQR/Median value equal or less than 0.15 implies a quality data set. *IQR/Median value over 0.15 implies a poor quality data set. SIGNIFICANT CHANGE FROM PRIOR EXAM: Significant change if liver stiffness measurement is 10% or greater from prior exam. OTHER CONSIDERATIONS: The stage of liver fibrosis may be overestimated in the setting of acute hepatitis, liver inflammation, elevated liver function tests, hepatic vascular congestion, obstructive cholestasis, non-fasting state, and infiltrative diseases such as amyloidosis and lymphoma. In some patients with NAFLD, the liver stiffness thresholds for compensated advanced chronic liver disease may be lower. In causes other than viral hepatitis and NAFLD, liver stiffness thresholds are not well established.
== END 2023-09-21 09:23 | disposition home or self-care (01) ==
LOC: HO.US 09:22
PROVIDERS: PCP Internal Medicine; Visit Provider Nurse Practitioner Family
DX: R74.01 Elevation of levels of liver transaminase levels (principal)
CPT/HCPCS: 76705; 76981

== ENCOUNTER 2023-12-13 11:06 | Outpatient (REF) | payer OTHER, SELFPAY ==
[2023-12-13 13:35] LABS: Alanine Aminotransferase 56 U/L (0-40); Albumin Level 4.3 g/dL (3.5-5.0); Alkaline Phosphatase 61 U/L (39-117); Anion Gap 13 (12-20); Aspartate Amino Transferase 33 U/L (5-37); Bilirubin Total 0.7 mg/dL (0.0-1.0); Blood Urea Nitrogen 16 mg/dL (9-16); Calcium 9.6 mg/dL (8.4-10.2); Carbon Dioxide 28 mmol/L (22-29); Chloride 103 mmol/L (96-108); Cholesterol 213 mg/dL (<200); Estimated Glomerular Filt Rate > 60; Glucose Random 88 mg/dL (60-115); HDL Cholesterol 41 mg/dL (>40); LDL Cholesterol Calculated 135 mg/dL (<100); Potassium 3.9 mmol/L (3.3-5.1); Sodium 140 mmol/L (135-145); Total Protein 7.6 g/dL (6.5-8.0); Triglycerides 188 mg/dL (<150)
== END 2023-12-13 11:07 | disposition home or self-care (01) ==
LOC: HO.LAB 11:06
PROVIDERS: PCP Internal Medicine; Visit Provider Internal Medicine
DX: Z00.00 Encounter for general adult medical examination without abnormal findings (principal); E78.00 Pure hypercholesterolemia, unspecified; I10 Essential (primary) hypertension; R74.01 Elevation of levels of liver transaminase levels
CPT/HCPCS: 36415; 80053; 80061

== ENCOUNTER 2024-02-14 08:19 | Outpatient (AMB) | payer OTHER, SELFPAY ==
--- NOTE | 2024-02-14 08:24 | MHC.OFFVIS ---
Vital Signs 02/14/24 08:25 Height 5 ft 8 in Weight 170 lb 10.205 oz BMI 25.9 BP 132/80 Blood Pressure Location Rt brachial Position Sitting Pulse 52 Intake Visit Reasons: 6 month follow up Intake Note: Patient in 6 months follow up of labs and elevated LFTS. CC: Patient reports doing well and denies having any GI symptoms or concerns today. 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 If patient continues to have elevation will do limited abdominal ultrasound with liver elastography and other workup. We will rule out viral hepatitis, autoimmune disorders. I will see patient in 6 months, sooner on as needed basis. Patient is agreeable to this plan and verbalizes understanding of instructions. He was given the opportunity to ask questions and all questions answered. ? Thank you for allowing me to participate in his care Orders Orders Liver Panel Today R10.9 TODAY'S VISIT Patient is here today for follow-up. Patient reports that he has been feeling well. Continues to have occasional left lower quadrant pain. Pain is worse after eating certain food. Patient does not eat anything spicy or fried. Denies any diarrhea. States that he moves his bowels without any issues. Currently he is taking omeprazole daily and reports to be effective. [facility] Medical History Postprandial abdominal bloating Colon cancer screening Hx of hemorrhoids Surgical History Hx of colonoscopy Family History Brother HTN (hypertension) Social History Alcohol intake: current Patient Tobacco Use Status: Never used Tobacco Review of Systems Const Denies weight gain and Denies weight loss ENT Reports no additional complaints, Denies dysphagia and Denies odynophagia Card Reports no additional complaints Resp Reports no additional complaints GI Reports abdominal pain (LLQ), Denies belching, Denies melena, Reports bloating, Denies change in bowel habits, Denies dysphagia, Denies excessive flatus, Denies dyspepsia, Denies heartburn, Denies diarrhea, Denies loose stools, Denies nausea, Denies odynophagia and Denies vomiting Reports no additional complaints Musc Reports no additional complaints Neuro Reports no additional complaints Psych Reports no additional complaints Endo Reports no additional complaints Physical Exam Vital Signs: Last Vital Signs Pulse 52 02/14/24 08:25 BP 132/80 02/14/24 08:25 BMI result Body Mass Index 25.9 Const General: healthy appearing, no acute distress and well developed Nutritional Appearance: well nourished Orientation/consciousness: patient oriented x3 Resp Effort & Inspection: normal respiratory effort, able to speak in complete sentences, no tracheal deviation and symmetric chest movement Auscultation: clear to auscultation bilaterally Cardio Rate: regular rate GI Inspection: Yes normal to inspection and No distended Palpation (GI): Soft to palpation, not firm, nontender and No hepatosplenomegaly present Auscultation: normal bowel sounds General: Yes no CVA tenderness Back/Spine/Pelvis Back: no CVA tenderness Skin General skin exam: elasticity normal, turgor normal and dry skin Neuro General: patient oriented x3 Psych Appearance: grossly normal Mental Status: mental status grossly normal Results Reviewed Results Reviewed: Laboratory Tests 08/16/23 08/19/23 12/13/23 09:51 09:36 11:20 AST 66 H 33 ALT 133 H 56 H Alkaline Phosphatase 61 Liver Fibrosis Stage F1 ABDOMINAL ULTRASOUND WITH ELASTOGRAPHY FINDINGS: PANCREAS: There is mild increase in echotexture, suggesting possible fatty infiltration. The visualized pancreatic head and body are normal in appearance. The remainder of the pancreas is obscured from visualization by the overlying bowel gas. LIVER: The liver demonstrates normal contour and increased echogenicity, with pericholecystic sparing. No focal lesion or intrahepatic biliary duct dilatation. The right lobe measures 17.6 cm in length. The left lobe measures 8.7 cm in length. Portal flow is towards the liver (hepatopetal). Shear wave liver elastography median stiffness is 2.2 m/s (reference: normal median stiffness is 1.3 m/s or less). IQR/median stiffness to assess sampling precision is 0.12 (reference: good quality data set is IQR/median stiffness of 0.15 or less). GALLBLADDER: Normal. The gallbladder is physiologically distended without evidence of stones, sludge, polyps, wall thickening or pericholecystic fluid. COMMON BILE DUCT: Normal in caliber measuring 0.3 cm in diameter. RIGHT KIDNEY: Normal. No hydronephrosis. No renal calculi or focal parenchymal lesions. The kidney measures 10.1 cm in maximum dimension. FREE FLUID: None. US/US abdomen medina w elastography IMPRESSION: 1. There is generalized increase in hepatic echotexture, consistent with fatty infiltration or hepatocellular disease. Please correlate clinically. Characteristic pericholecystic sparing favors fatty infiltration. No focal hepatic mass or intrahepatic biliary dilatation is seen. 2. There is mild hepatosplenomegaly. 3. Liver elastography: Measuremensts are consistent with compensated advanced chronic liver disease. Assessment & Plan Assessment & Plan (1) Postprandial abdominal bloating: Code(s): R14.0 - Abdominal distension (gaseous) Category: Medical (2) LUQ abdominal pain: Code(s): R10.12 - Left upper quadrant pain Category: Medical (3) Elevated liver enzymes: Code(s): R74.8 - Abnormal levels of other serum enzymes Plan Continue with avoiding fatty food. Avoid dietary triggers and late night snacking. Continue omeprazole. Will repeat liver enzymes in 2 months as well as ultrasound. Patient will follow-up in our office in 6 months, sooner on as needed basis. He is agreeable to this plan and verbalizes understanding instructions. He was given the opportunity to ask questions and all questions answered. Thank you for allowing me to participate in his care Orders: Orders US abdomen limited 2 Months R79.89 - Other specified abnormal findings of blood chemistry Liver Panel 2 Months R74.01 - Elevation of levels of liver transaminase levels Coding Level of Care Code Est Pt Level 4 (09427) Diagnoses Postprandial abdominal bloating R14.0 LUQ abdominal pain R10.12 Elevated liver enzymes R74.8 Time Spent (min) 35 Comment 20 minutes spent with patient and additional 15 minutes spent reviewing his records
[2024-02-14 08:25] VITALS: BP 132/80; PULSE 52; BMI 25.9
== END 2024-02-14 09:18 | disposition home or self-care (01) ==
PROVIDERS: PCP Internal Medicine; Visit Provider Nurse Practitioner Family
DX: R14.0 Abdominal distension (gaseous) (principal); R10.12 Left upper quadrant pain; R74.8 Abnormal levels of other serum enzymes
CPT/HCPCS: 99214

== ENCOUNTER → 2024-02-14 08:19 | Outpatient (BNVA) | payer OTHER, SELFPAY | PROVIDERS: PCP Internal Medicine; Visit Provider Nurse Practitioner Family | DX: R14.0 Abdominal distension (gaseous) (principal); R10.12 Left upper quadrant pain; R74.8 Abnormal levels of other serum enzymes | CPT/HCPCS: 99212 ==

== ENCOUNTER 2024-02-24 08:16 | Outpatient (REF) | payer OTHER, SELFPAY ==
--- NOTE | ~2024-02-24 | US_ITS ---
EXAMINATION: US ABDOMEN LIMITED CLINICAL INFORMATION: Other specified abnormal findings of blood chemistry. COMPARISON: Ultrasound abdomen limited 09/21/2023. CTA abdomen 10/11/2022. TECHNIQUE: Real-time imaging of the right upper quadrant abdominal viscera. Limited visualization due to bowel gas. FINDINGS: PANCREAS: Redemonstration of increased pancreatic echotexture. Limited visualization. LIVER: Increased hepatic parenchymal heterogeneity and echogenicity could be associated with hepatocellular disease/hepatic steatosis and substantially limits visualization. Hepatomegaly, 15.8 cm. Correlation with liver function tests and clinical exam recommended to determine further management. GALLBLADDER: No gallstones. No gallbladder wall thickening. COMMON BILE DUCT: Normal in caliber measuring 0.4 cm in diameter. RIGHT KIDNEY: No hydronephrosis. No renal calculi. Limited visualization. The kidney measures 11.0 cm in maximum dimension. FREE FLUID: None. US/US abdomen limited IMPRESSION: 1. Hepatomegaly. Increased hepatic parenchymal heterogeneity and echogenicity could be associated with hepatocellular disease/hepatic steatosis and substantially limits visualization. Hepatomegaly, 15.8 cm. Correlation with liver function tests and clinical exam recommended to determine further management. 2. Redemonstration of increased pancreatic echotexture. Limited visualization.
== END 2024-02-24 08:17 | disposition home or self-care (01) ==
LOC: HO.US 08:16
PROVIDERS: Visit Provider Nurse Practitioner Family
DX: R79.89 Other specified abnormal findings of blood chemistry (principal)
CPT/HCPCS: 76705

== ENCOUNTER 2024-06-18 09:18 | Outpatient (REF) | payer OTHER, SELFPAY ==
[2024-06-18 10:55] LABS: Alanine Aminotransferase 33 U/L (0-40); Albumin Level 4.5 g/dL (3.5-5.0); Alkaline Phosphatase 56 U/L (39-117); Anion Gap 11 (12-20); Aspartate Amino Transferase 24 U/L (5-37); Bilirubin Total 0.8 mg/dL (0.0-1.0); Blood Urea Nitrogen 15 mg/dL (9-16); Carbon Dioxide 29 mmol/L (22-29); Chloride 104 mmol/L (96-108); Cholesterol 221 mg/dL (<200); Estimated Glomerular Filt Rate > 60; Glucose Random 113 mg/dL (60-115); HDL Cholesterol 42 mg/dL (>40); LDL Cholesterol Calculated 143 mg/dL (<100); Potassium 4.2 mmol/L (3.3-5.1); Sodium 140 mmol/L (135-145); Total Protein 7.9 g/dL (6.5-8.0); Triglycerides 182 mg/dL (<150)
[2024-06-18 11:31] LABS: Prostate Specific Antigen Scr 0.47 ng/mL (<0.05-4.0)
== END 2024-06-18 09:19 | disposition home or self-care (01) ==
LOC: HO.LAB 09:18
PROVIDERS: PCP Internal Medicine; Visit Provider Internal Medicine
DX: E78.00 Pure hypercholesterolemia, unspecified (principal); I10 Essential (primary) hypertension; N40.0 Benign prostatic hyperplasia without lower urinary tract symptoms; R74.01 Elevation of levels of liver transaminase levels; Z68.25 Body mass index [BMI] 25.0-25.9, adult
CPT/HCPCS: 36415; 80053; 80061; 84153

== ENCOUNTER 2024-08-20 07:49 | Outpatient (AMB) | payer OTHER, SELFPAY ==
[2024-08-20 08:08] VITALS: BP 144/90; PULSE 60; O2SAT 99; BMI 25.8
--- NOTE | 2024-08-20 08:08 | A.OFFVIS_ITS ---
Vital Signs 08/20/24 08:08 Height 5 ft 8 in Weight 169 lb 12.095 oz BMI 25.8 BP 144/90 H Blood Pressure Location Rt brachial Position Sitting Pulse 60 Pulse Source Pulse Oximeter Pulse Oximetry (%) 99 Oxygen Delivery Method Room Air Intake Visit Reasons: 6 month follow up Intake Note: Relevant Flags or Indicators ? Requires Drafter Structural? Davi Cuevas presents in office today for a scheduled 6 mos FUV. CC; Pt has had US performed since last visit. Pt still has active lab order. No new meds. Relevant GI Sx as reported per pt? * LLQ pain. Pt also complaining of back pain which seems to be associated with the abd pain. ? Hx of any recent surgeries? None Drafter Structural Required: No Allergies No Known Allergies [No Known Allergies*] Allergy (Verified 08/20/24 08:09) HPI HPI 6 month follow up: Details: LAST VISIT: Postprandial abdominal bloating LUQ abdominal pain Elevated liver enzymes Plan Continue with avoiding fatty food. Avoid dietary triggers and late night snacking. Continue omeprazole. Will repeat liver enzymes in 2 months as well as ultrasound. Patient will follow-up in our office in 6 months, sooner on as needed basis. He is agreeable to this plan and verbalizes understanding instructions. He was given the opportunity to ask questions and all questions answered. ? Thank you for allowing me to participate in his care Orders Orders US abdomen limited 2 Months R79.89 Liver Panel 2 Months R74.01 TODAY'S VISIT: Patient is here today for follow-up. Ultrasound results and lab results discussed with patient. Liver enzymes normalized. Patient has increase echogenicity of the liver and hepatomegaly. Also increase echogenicity of the pancreas seen. No lesions or cysts visualized. Patient continues to have a left lower quadrant pain sometimes radiating to his back. Patient reports that he feels better when he tabs his back. The pain he experiences feels like ache and not a cramps. He states that this pain is dull and not sharp. Patient denies any nausea or vomiting. Denies any melena, hematochezia, unintentional weight loss or ribbon like stools. Patient denies any dyspepsia, dysphagia or odynophagia. He is taking omeprazole daily and reports that his symptoms are suppressed, however he sometimes wakes up feeling burning in his stomach. He does not eat late at night, however he does report that his last meal is large. Patient usually does not eat anything throughout the whole day and eats late at night. [facility] Medical History (Updated 08/20/24 @ 09:21 by Gloria Lee, [facility]) GERD (gastroesophageal reflux disease) Postprandial abdominal bloating Colon cancer screening Hx of hemorrhoids Surgical History Hx of colonoscopy Family History Brother HTN (hypertension) Social History Alcohol intake: current Patient Tobacco Use Status: Never used Tobacco Review of Systems Const Denies weight gain and Denies weight loss ENT Reports no additional complaints, Denies dysphagia and Denies odynophagia Card Reports no additional complaints Resp Reports no additional complaints GI Reports abdominal pain (LLQ), Denies belching, Denies melena, Denies bloating, Denies change in bowel habits, Denies dysphagia, Denies excessive flatus, Denies dyspepsia, Reports heartburn (Occasional was not taking omeprazole), Denies diarrhea, Denies loose stools, Denies nausea, Denies odynophagia and Denies vomiting Reports no additional complaints Musc Reports no additional complaints Neuro Reports no additional complaints Psych Reports no additional complaints Endo Reports no additional complaints Physical Exam Vital Signs: BMI result Body Mass Index 25.8 Const General: healthy appearing, no acute distress and well developed Nutritional Appearance: well nourished Orientation/consciousness: patient oriented x3 HEENT Head: Yes normal to inspection, Yes normocephalic and Yes atraumatic Face and sinus: Yes normal facial exam Mouth: Normal oral and palatal mucosa present Throat: Yes posterior oropharynx normal, Yes tonsils normal and Yes uvula midline Eyes General: appearance normal, both eyes and all related structures Neck Neck: Yes normal visual inspection, Yes full ROM and Yes trachea midline Thyroid: Thyroid normal Resp Effort & Inspection: normal respiratory effort, able to speak in complete sentences, no tracheal deviation and symmetric chest movement Auscultation: clear to auscultation bilaterally Cardio Rate: regular rate Heart sounds: S1 normal heart sound present and S2 normal heart sound present GI Inspection: Yes normal to inspection and No distended Palpation (GI): Soft to palpation, not firm, nontender and No hepatosplenomegaly present Auscultation: normal bowel sounds General: Yes no CVA tenderness Back/Spine/Pelvis Back: no CVA tenderness Skin General skin exam: elasticity normal, turgor normal and dry skin Neuro General: patient oriented x3 Psych Appearance: grossly normal Mental Status: mental status grossly normal Results Reviewed Results Reviewed: Laboratory Tests 12/13/23 06/18/24 11:20 09:36 AST 33 24 ALT 56 H 33 Alkaline Phosphatase 61 56 ABDOMINAL ULTRASOUND FINDINGS: PANCREAS: Redemonstration of increased pancreatic echotexture. Limited visualization. LIVER: Increased hepatic parenchymal heterogeneity and echogenicity could be associated with hepatocellular disease/hepatic steatosis and substantially limits visualization. Hepatomegaly, 15.8 cm. Correlation with liver function tests and clinical exam recommended to determine further management. GALLBLADDER: No gallstones. No gallbladder wall thickening. COMMON BILE DUCT: Normal in caliber measuring 0.4 cm in diameter. RIGHT KIDNEY: No hydronephrosis. No renal calculi. Limited visualization. The kidney measures 11.0 cm in maximum dimension. FREE FLUID: None. US/US abdomen limited IMPRESSION: 1. Hepatomegaly. Increased hepatic parenchymal heterogeneity and echogenicity could be associated with hepatocellular disease/hepatic steatosis and substantially limits visualization. Hepatomegaly, 15.8 cm. Correlation with liver function tests and clinical exam recommended to determine further management. 2. Redemonstration of increased pancreatic echotexture. Limited visualization. Assessment & Plan Assessment & Plan (1) Postprandial abdominal bloating: Code(s): R14.0 - Abdominal distension (gaseous) Category: Medical (2) LUQ abdominal pain: Code(s): R10.12 - Left upper quadrant pain Category: Medical (3) Elevated liver enzymes: Code(s): R74.8 - Abnormal levels of other serum enzymes (4) Nonalcoholic fatty liver: Code(s): K76.0 - Fatty (change of) liver, not elsewhere classified (5) Hepatomegaly: Code(s): R16.0 - Hepatomegaly, not elsewhere classified (6) GERD (gastroesophageal reflux disease): Code(s): K21.9 - Gastro-esophageal reflux disease without esophagitis Category: Medical Qualifiers: Esophagitis presence: esophagitis presence not specified Qualified Code(s): K21.9 - Gastro-esophageal reflux disease without esophagitis Plan Continue omeprazole daily. Avoid dietary triggers and late night snacking. Patient was encouraged to try to eat smaller meals throughout the day, however patient is doing intermittent fasting. Increased echogenicity of the pancreas, however unable to visualize pancreas well. Will send patient for MRI. Increase echogenicity of the liver and hepatomegaly seen. No lesions seen. Patient will return in the office in 6 months, sooner on as needed basis. He is agreeable to this plan and verbalizes understanding of instructions. He was given the opportunity ask questions and all questions answered. Thank you for allowing me to participate in his care Orders: Orders MR abdomen wo/w con Today R10.12 - Left upper quadrant pain, R74.8 - Abnormal levels of other serum enzymes Medications: Refilled omeprazole 20 mg PO DAILY 90 caps 2RF K21.9 - Gastro-esophageal reflux disease without esophagitis Coding Level of Care Code Est Pt Level 4 (86925) Complex EM visit Add On G2211 Diagnoses Postprandial abdominal bloating R14.0 LUQ abdominal pain R10.12 Elevated liver enzymes R74.8 Nonalcoholic fatty liver K76.0 Hepatomegaly R16.0 Gastroesophageal reflux disease, unspecified whether esophagitis present K21.9 Esophagitis presence: esophagitis presence not specified Time Spent (min) 35 Comment 20 minutes spent with patient and additional 15 minutes spent reviewing his records
== END 2024-08-20 08:36 | disposition home or self-care (01) ==
PROVIDERS: PCP Internal Medicine; Visit Provider Nurse Practitioner Family
DX: R14.0 Abdominal distension (gaseous) (principal); R10.12 Left upper quadrant pain; R74.8 Abnormal levels of other serum enzymes; K76.0 Fatty (change of) liver, not elsewhere classified; R16.0 Hepatomegaly, not elsewhere classified; K21.9 Gastro-esophageal reflux disease without esophagitis
CPT/HCPCS: 99214; G2211

== ENCOUNTER → 2024-08-20 07:49 | Outpatient (BNVA) | payer OTHER, SELFPAY | PROVIDERS: PCP Internal Medicine; Visit Provider Nurse Practitioner Family | DX: R10.12 Left upper quadrant pain (principal); R14.0 Abdominal distension (gaseous); R74.8 Abnormal levels of other serum enzymes; R16.0 Hepatomegaly, not elsewhere classified; K76.0 Fatty (change of) liver, not elsewhere classified; K21.9 Gastro-esophageal reflux disease without esophagitis | CPT/HCPCS: 99212 ==

== ENCOUNTER → 2024-10-01 08:25 | Outpatient (BNV) | payer OTHER, SELFPAY | PROVIDERS: PCP Internal Medicine; Visit Provider Radiology Diagnostic Radiology | DX: R10.12 Left upper quadrant pain (principal) | CPT/HCPCS: 74183 ==

== ENCOUNTER 2024-10-01 08:26 | Outpatient (REF) | payer OTHER, SELFPAY ==
--- NOTE | ~2024-10-01 | MR_ITS ---
EXAMINATION: MRI Abdomen without and with contrast HISTORY: R10.12 - Left upper quadrant pain COMPARISON: Correlation is made with an abdominal ultrasound dated 02/24/2024. TECHNIQUE: Axial in and out of phase T1-weighted gradient echo, axial diffusion weighted, and axial and coronal haste T2 with fat saturation images were obtained through the abdomen. Subsequently, fat suppressed axial and coronal T1-weighted images were obtained after the intravenous administration of 7.5 mL Gadavist. FINDINGS: The liver is normal in size. There is no significant loss of signal intensity within the liver on opposed phase imaging to suggest steatosis. The hepatic and portal veins patent. There is no intra or extrahepatic biliary ductal dilatation. There is no enhancing liver mass. The gallbladder, spleen, pancreas, adrenals, and kidneys are unremarkable. No retroperitoneal lymphadenopathy or ascites is identified in the upper abdomen. MR/MR abdomen wo/w con IMPRESSION: Unremarkable MRI of the abdomen without and with contrast. There is no evidence of hepatic steatosis or a liver mass. Electronically signed by: Rich Lazo MD 10/01/2024 10:40 AM EST
[2024-10-01] MEDS: gadobutroL 7.5 ML VIAL IVPUSH (09:27)
== END 2024-10-01 08:27 | disposition home or self-care (01) ==
LOC: HO.MRI 08:26
PROVIDERS: PCP Internal Medicine; Visit Provider Nurse Practitioner Family
DX: R10.12 Left upper quadrant pain (principal); R74.8 Abnormal levels of other serum enzymes
CPT/HCPCS: 74183; A9585

== ENCOUNTER 2024-12-17 08:16 | Outpatient (REF) | payer OTHER, SELFPAY ==
[2024-12-17 09:15] LABS: Alanine Aminotransferase 41 U/L (0-40); Albumin Level 4.4 g/dL (3.5-5.0); Alkaline Phosphatase 62 U/L (39-117); Anion Gap 11 (12-20); Aspartate Amino Transferase 31 U/L (5-37); Bilirubin Total 0.8 mg/dL (0.0-1.0); Blood Urea Nitrogen 16 mg/dL (9-16); Calcium 9.7 mg/dL (8.4-10.2); Carbon Dioxide 28 mmol/L (22-29); Chloride 105 mmol/L (96-108); Cholesterol 190 mg/dL (<200); Estimated Glomerular Filt Rate > 60; Glucose Random 119 mg/dL (60-115); HDL Cholesterol 32 mg/dL (>40); LDL Cholesterol Calculated 116 mg/dL (<100); Potassium 4.2 mmol/L (3.3-5.1); Sodium 140 mmol/L (135-145); Total Protein 7.8 g/dL (6.5-8.0); Triglycerides 212 mg/dL (<150)
== END 2024-12-17 08:17 | disposition home or self-care (01) ==
LOC: HO.LAB 08:16
PROVIDERS: PCP Internal Medicine; Visit Provider Internal Medicine
DX: I10 Essential (primary) hypertension (principal); M19.049 Primary osteoarthritis, unspecified hand; E78.00 Pure hypercholesterolemia, unspecified; Z00.00 Encounter for general adult medical examination without abnormal findings
CPT/HCPCS: 36415; 80053; 80061

== ENCOUNTER 2024-12-31 03:51 | Emergency (ER) | payer OTHER, SELFPAY ==
--- NOTE | ~2024-12-31 | XR_ITS ---
CLINICAL HISTORY: injury fall 3 view right hand 3 view right wrist Comparison: None Findings: Bones intact. No dislocations. 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 No radiopaque foreign body. No acute osseous abnormality of the right wrist identified IMPRESSION: 1. No acute findings This document has been electronically signed by: Shane Gonzalez MD, PHD on 12/31/2024 04:56:23
[2024-12-31 04:01] VITALS: BP 142/89; PULSE 69; RESP 18; TEMP 37.2; O2SAT 99; BMI 24.5
--- OUTSIDE RECORDS SUMMARY | 2024-12-31 04:21 | XMS_ITS | Clinical Summary ---
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 Name Role Phone Unavailable Primary Care Provider Unavailabl e Social History Tobacco Use Types Packs/Day Years Used Date Smoking Tobacco: Never Assessed Sex and Gender Information Value Date Recorded Sex Assigned at Not on file Legal Sex Male 9:22 AM EST Gender Identity Not on file Sexual Orientation Not on file Plan of Treatment Health Maintenance Due Date Last Done Comments DTaP,Tdap,and Td Vaccines (1 - Tdap) 1984 Hepatitis B Vaccines (1 of 3 - 19+ 3-dose series) 1984 Pneumococcal Vaccine: 50+ Ye ars (1 of 1 - PCV) 2015 Zoster Vaccines (1 of 2) 2015 COVID-19 Vaccine (1 - 2023-2 5 season) 2024 Influenza Vaccine (#1) 2024 RSV Immunization Adult Patie nts (1 - 1-dose 75+ series) 2040 HIB Vaccines Aged Out No longer eligi ble based on patient's age to complete this topic HPV Vaccines Aged Out No longer eligi ble based on patient's age to complete this topic Hepatitis A Vaccines Aged Out No long er eligible based on patient's age to complete this topic IPV Vaccines Aged Out No longer eligi ble based on patient's age to complete this topic MMR Vaccines Aged Out No longer eligi ble based on patient's age to complete this topic Meningococcal ACWY Vaccine Aged Out N o longer eligible based on patient's age to complete this topic Meningococcal B Vacine Aged Out No lo nger eligible based on patient's age to complete this topic Pneumococcal Vaccine: Pediat rics (0 to 5 Years) and At-Risk Patients (6 to 64 Years) Aged Out No longer eligible b ased on patient's age to complete this topic RSV Immunization Patients Un linda 20 months Aged Out No longer eligible b ased on patient's age to complete this topic Varicella Vaccines Aged Out No longer eligible based on patient's age to complete this topic
--- OUTSIDE RECORDS SUMMARY | 2024-12-31 04:21 | XMS_ITS | Clinical Summary ---
Author Organization [facility] Address [address] [place] [address] Care Team Providers Care Inventory Taker Name Role Phone Unavailable Primary Care Provider Unavailabl e Source Comments PLEASE NOTE, if this patient is a minor, it may be UNLAWFUL to discuss sensitive information that is contained in these records (such as FAMILY PLANNING, MENTAL HEALTH or SUBSTANCE ABUSE) with the minor patient's parent or other person without the patient's specific authorization.[facility] Medications amoxicillin (AMOXIL) 500 mg capsuleIndicati ons:Toothache,T ooth infection Take 1 Capsule by mouth 3 (three) times daily 21 Capsule 03/13/2022 Active Social History Tobacco Use Types Packs/Day Years Used Date Smoking Tobacco: Never Social Connections Answer Date Recorded Connectedness 0 06/08/2024 Financial Resource Strain Answer Date R ecorded Financial Resource Strain 0 2021 Stress Answer Date Recorded Stress 0 03/13/2022 Physical Activity Answer Date Recorded Physical Activity 0 03/13/2022 Food Insecurity Answer Date Recorded Food 0 06/21/2024 Transportation Needs Answer Date Record ed Transportation 0 03/13/2022 Housing Stability Answer Date Recorded Housing 0 03/13/2022 Safety and Environment Answer Date Raguh rded Safety 0 03/13/2022 Utilities Answer Date Recorded Utilities 0 03/13/2022 Employment Answer Date Recorded Stress 0 06/08/2024 Sex and Gender Information Value Date Recorded Sex Assigned at Not on file Legal Sex Male 5:44 AM PDT Gender Identity Not on file Sexual Orientation Not on file Last Filed Vital Signs Vital Sign Reading Time Taken Comments Blood Pressure 137/88 03/13/2022 9:13 AM EDT Pulse 68 03/13/2022 9:13 AM EDT Temperature - - Respiratory Rate - - Oxygen Saturation - - Inhaled Oxygen Concentration - - Weight - - Height - - Body Mass Index - - Plan of Treatment Health Maintenance Due Date Last Done Comments Diabetes Screening 1965 Hepatitis B Screening 1965 Hepatitis C Screening 1965 Lipid Screening 1965 Tobacco Screening 1965 HIV Screening 1965 Syphilis Screening 11/14/1979 Annual Preventive Care Visit 1983 Imm-DTaP/Tdap/Td (1 - Tdap) 1984 Imm-Hepatitis A (1 of 2 - Risk 2-dose series) 11/13/18 85 Imm-Hepatitis B (1 of 3 - 19+ 3-dose series) 5 CT Colonography 2010 Colonoscopy 2010 Colorectal Cancer Screening 2010 FIT/gFOBT 2010 Fecal DNA 2010 Flexible Sigmoidoscopy 2010 Imm-Zoster, Recombinant (1 of 2) 2015 Hypertension Screening (#1) 03/13/2023 [id number] ( season) 2024 Imm-Influenza (#1) 2024 Alcohol and Drug Screen 09/26/2024 Depression Annual Screen 09/26/2024 Insurance [employer]
--- NOTE | 2024-12-31 04:50 | ED.EXTPRO ---
HPI - Extremity Problem General Chief complaint: Extremity Injury, Upper Stated complaint: Right hand injury Time Seen by Provider: 12/31/24 04:50 Source: patient Mode of arrival: ambulatory Limitations: no limitations History of Present Illness ED Provider: Dr. Mary Carmen Hawley HPI Narrative: Patient comes to the emergency room complaining of right-sided hand pain. Patient states that he fell into his right hand and now has a bruise in the palm of the hand. Patient states that he did not sustain any other injuries, patient is not on blood thinners. Patient denies been anywhere else Related Data Home Medications ?Medication ?Instructions ?Recorded ?Confirmed valsartan 160 1 tab PO DAILY 02/14/24 mg-hydrochlorothiazide 25 mg tablet Previous Rx's ?Medication ?Instructions ?Recorded omeprazole 20 mg capsule,delayed 20 mg PO DAILY #90 caps 08/20/24 release Allergies Allergy/AdvReac Type Severity Reaction Status Date / Time No Known Allergies Allergy Verified 12/31/24 04:02 [No Known Allergies*] Review of Systems Review of Systems: Constitutional : No Weight loss, No Fever, No Chills, No Night Sweats, No Fatigue, No Malaise ENT/Mouth : No Hearing loss, No Ear Pain, No Nasal Congestion, No Sinus Pain, No Hoarseness, No sore throat, No Rhinorrhea, No Swallowing Difficulty Eyes: No Eye Pain, No Swelling, No Redness, No Foreign Body, No Discharge, No Vision Changes Cardiovascular : No Chest Pain, No SOB, No Dyspnea on Exertion, No Orthopnea, No Edema, No Palpitations Respiratory : No Cough, No Sputum, No Wheezing, No Smoke Exposure, No Dyspnea Gastrointestinal : No Nausea, No Vomiting, No Diarrhea, No Constipation, No abdominal Pain, No Hematochezia, No Melena Genitourinary : no irregular bleeding, No Dysuria, No Urinary Frequency, No Hematuria, No Urinary Incontinence, No Urgency, No Flank Pain, No Urinary Flow Changes, No Hesitancy Musculoskeletal : Complaining of right hand pain, more painful in the palmar aspect, No Myalgias, No Joint Swelling Skin : No Skin Lesions, No rash Neuro : No Weakness, No Numbness, No Paresthesias, No Loss of Consciousness, No Dizziness, No Headache Psych : No Anxiety/Panic, No Depression, No SI/HI/AH/VH, No Social Issues, Heme/Lymph: No Bruising, No Bleeding,No Lymphadenopathy Endocrine : No Polyuria, No Polydipsia, No Temperature Intolerance [facility] Past Medical History Medical History GERD (gastroesophageal reflux disease) Postprandial abdominal bloating Colon cancer screening Hx of hemorrhoids Surgical History Hx of colonoscopy Family History Family History Brother HTN (hypertension) Social History Social History Alcohol intake: current Patient Tobacco Use Status: Never used Tobacco Advance Directives: No Advance Directives Information Provided: Yes Do you have a plan to hurt others: No Plan Physical Exam Vital Signs: Vital Signs: Last Vital Signs Temp 98.9 F 12/31/24 04:01 Pulse 69 12/31/24 04:01 Resp 18 12/31/24 04:01 BP 142/89 H 12/31/24 04:01 Pulse Ox 99 12/31/24 04:01 O2 Del Method Room Air 12/31/24 04:01 BMI result Body Mass Index 24.5 Const: Other: Appearance: Alert. Oriented X3. No acute distress. Eyes: Pupils equal, round and reactive to light. ENT: Pharynx normal. Neck: Normal inspection. Neck supple. No lymph nodes noted. No crepitus CVS: Normal heart rate and rhythm. Pulses normal. Normal S1 and S2 Respiratory: No respiratory distress. Breath sounds normal. No Wheezing. No rales Abdomen: Soft and nontender. No rigidity. No distention. Skin: Skin warm and dry. Normal skin color. Normal skin turgor. Extremities: No lower extremity edema. No Lacerations. No Rash, there is no swelling around the right wrist. However, there is 3 cm x 3 cm ecchymosis in the palmar aspect of the right hand, no snuffbox tenderness, patient able to oppose the thumb to all fingers. Neuro: Oriented X 3. No motor deficit. No sensory deficit. Moving all extremities. No slurred speech. CN 2 through 12 grossly intact Psych: calm, cooperative, normal affect Medical Decision Making Medical Decision Making MDM Narrative: X-ray of the hand negative. Patient has an ecchymosis in the palm of the hand. I discussed with the patient that he will like to x-ray in about a week. In the meantime, we will put his hand in a splint. Independent Interpretation I performed an independent interpretation of an: Plain X-Ray Radiology Impression Discussion of test interpretation with radiology: I have reviewed the radiologist's reading. Radiologist Impression: Bones intact. No dislocations. 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 No radiopaque foreign body. No acute osseous abnormality of the right wrist identified IMPRESSION: 1. No acute findings Discharge Plan Discharge Clinical Impression: Contusion of hand Patient Disposition: Home, Self-Care Instructions: Contusion in Adults (ED) Additional Instructions: Please follow-up with your primary care physician in approximately 1 week for x-ray. Insert discharge Prescriptions: No Action omeprazole 20 mg capsule,delayed release(DR/EC) 20 mg PO DAILY Qty: 90 2RF valsartan-hydrochlorothiazide 160-25 mg tablet 1 tab PO DAILY Referrals: Maritza Gerardo PA-C [Physician Injection Molding Machine Offbearer] - 1 week Print Language: Swedish
[2024-12-31 05:57] VITALS: BP 142/89; PULSE 69; RESP 18; TEMP 37.2; O2SAT 99
== END 2024-12-31 06:02 | disposition home or self-care (01) ==
PROVIDERS: Emergency Provider Emergency Medicine; PCP Internal Medicine
DX: S60.221A Contusion of right hand, initial encounter (principal); M79.641 Pain in right hand; W19.XXXA Unspecified fall, initial encounter; Y93.9 Activity, unspecified; Y92.9 Unspecified place or not applicable; Y99.8 Other external cause status; Z79.899 Other long term (current) drug therapy
CPT/HCPCS: 73110; 73130; 99283

== ENCOUNTER → 2024-12-31 04:32 | Outpatient (BNV) | payer OTHER, SELFPAY | PROVIDERS: Emergency Provider Emergency Medicine; PCP Internal Medicine; Visit Provider General Practice | DX: M79.641 Pain in right hand (principal) | CPT/HCPCS: 73130 ==

== ENCOUNTER 2025-01-08 08:56 | Outpatient (AMB) | payer MEDICAID, SELFPAY ==
[2025-01-08 09:04] VITALS: BMI 24.5
--- NOTE | 2025-01-08 09:04 | A.OFFVIS_ITS ---
Vital Signs 01/08/25 09:04 Height 5 ft 9 in Weight 166 lb BMI 24.5 Intake Visit Reasons: FC-5th MC base fracture of R hand-DOI 12/30/24 Intake Note: Faith 59 yr old right hand dominant male presents today for an evaluation for his right hand injury to his 5th MC base fracture from 12/30/24 s/p [facility] ED 12/31/24. States he fell into his right hand and now has a bruise in the palm of the hand. Seen in [facility] ED where xrays were taken and hand was splinted. Currently states his pain is worse when he is using it like to shake hands or lifting. Denies numbness or tingling. Allergies No Known Allergies [No Known Allergies*] Allergy (Verified 01/08/25 09:09) HPI HPI FC-5th MC base fracture of R hand-DOI 12/30/24: Details: Faith is a 59 year old right hand dominant man who presents for a right hand injury, S/P fall, DOI 12/30/24. He was seen in the ED and splinted on 12/31/24. He complains of pain in his hand, worse with gripping or lifting activities, such as shaking hands. He has been wearing his splint as instructed. He denies any numbness or tingling. 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 Review of Systems Const All systems reviewed & are unremarkable except as noted in HPI and below Physical Exam Vital Signs: BMI result Body Mass Index 24.5 Const General: cooperative, healthy appearing and no acute distress Orientation/consciousness: patient oriented x3 HEENT Head: Yes normocephalic and Yes atraumatic Eyes EOM: EOMs intact bilaterally Resp Effort & Inspection: normal respiratory effort and able to speak in complete sentences Cardio Jugular venous distension: no JVD Skin General skin exam: turgor normal Rashes: no rashes Neuro General: patient oriented x3 Extrem Other: Evaluation of Right Upper Extremity: The patient is alert, oriented, and in no acute distress Neuro: Median, Ulnar, Radial nerves motor and sensory intact and sensation is normal to the tips of all digits Vascular: Cap refill brisk ROM: He can make a fist and extend all his digits No dorsal subluxation of the 5th CMC joint when making a tight fist No rotational mal-alignment Skin: No lacerations or abrasions or evidence of open fracture General: No Erythema or evidence of infection. Resolving swelling Resolving palmar ecchymosis Most tender over the 5th metacarpal base No tenderness over the 4th metacarpal No tenderness over the hamate No tenderness over the distal radius, DRUJ, or distal ulna No snuffbox or scaphoid tubercle tenderness Radiographs: 3 views of the right hand were taken and viewed by me today in clinic. They show a 5th metacarpal base fracture, comminuted, minimally displaced Psych Appearance: grossly normal Affect: normal affect Attitude: cooperative Office Procedures AMB Fracture Care Details: Fracture care [id number] Fracture Billing Code: Fracture Billing Code Assessment & Plan Assessment & Plan (1) Fracture of base of fifth metacarpal bone of right hand: Code(s): S62.316A - Displaced fracture of base of fifth metacarpal bone, right hand, initial encounter for closed fracture Category: Medical Plan Assessment & Plan: 1. Right 5th metacarpal base fracture, comminuted non-displaced S/P fall, DOI: 12/30/24 I educated him about this condition I discussed operative and non-operative treatment options We will manage this conservatively, and he is in agreement He will continue to wear his provided velcro wrist splint, like a cast except for showering or sleeping, for the next 4 weeks He can remove his splint when at home at rest. I discussed activity modifications, he is to lift nothing heavier than a cellphone for the next 4 weeks. No heavy gripping, pinching, lifting, impact activities, or falls He will perform gentle ROM exercises at home He will follow up in 4 weeks, with X-rays, 3V R hand, OOP Please note that greater than 25 minutes was spent with this patient going over the history, evaluating the patient and radiographs, formulating possible treatment options, discussing them with the patient, and documenting the visit. Scribed for Nakita Roper MD by Irvin Cabezas, emergency medical technician/driver, on 01/08/25 at 9:30 AM, EST. Orders: Orders XR hand RT min 3V Today M79.641 - Pain in right hand Coding Level of Care Code New Pt Level 4 (06168) Diagnoses Fracture of base of fifth metacarpal bone of right hand S62.316A CPT Codes Fracture Care - Fracture Billing Code: Fracture Billing Code ([id number])
--- OUTSIDE RECORDS SUMMARY | 2025-01-08 09:29 | XMS_ITS | Clinical Summary ---
Author Organization [facility] ity Address [address] [place] [address] Care Team Providers Care Vegetables Cook Name Role Phone Unavailable Primary Care Provider [...] Vaccines (1 of 2) 2015 COVID-19 Vaccine ( - 2023-2 5 season) 2024 Influenza Vaccine (Season Ended) 2025 RSV Immunization Adult Patie nts (1 - [...] age to complete this topic Meningococcal B Vaccine Aged Out No l onger eligible based on patient's age to complete [...]
--- OUTSIDE RECORDS SUMMARY | 2025-01-08 09:29 | XMS_ITS | Clinical Summary ---
Author Organization [facility] Address [address] [place] [address] Care Team Providers Care Hot Kettle Tender Name Role Phone Unavailable Primary Care Provider [...] 0 03/13/2022 Safety and Environment Answer Date Raghu rded Safety 0 03/13/2022 Utilities Answer Date [...] Health Maintenance Due Date Last Done Comments Anxiety Screening 1965 Diabetes Screening 1965 Hepatitis B Screening 1965 Hepatitis C Screening 1965 Lipid Screening 1965 Tobacco Screening 1965 HIV Screening 1965 Syphilis Screening 11/14/1979 Imm-DTaP/Tdap/Td (1 - Tdap) 1984 Imm-Hepatitis A (1 of 2 - Risk 2-dose series) 11/13/18 85 Imm-Hepatitis B (1 of 3 - 19+ 3-dose series) 5 CT Colonography 2010 Colonoscopy 2010 Colorectal Cancer Screening 2010 FIT/gFOBT 2010 Fecal DNA 2010 Flexible Sigmoidoscopy 2010 Imm-Zoster, Recombinant (1 of 2) 2015 Hypertension Screening (#1) 03/13/2023 [id number] ( season) 2024 Imm-Influenza (#1) 2024 Alcohol and Drug Screen 09/26/2024 Depression Annual Screen 09/26/2024 Insurance [employer]
== END 2025-01-08 09:58 | disposition home or self-care (01) ==
LOC: HO.HOS 08:58
PROVIDERS: PCP Internal Medicine; Visit Provider Orthopaedic Surgery
DX: S62.316A Displaced fracture of base of fifth metacarpal bone, right hand, initial encounter for closed fracture (principal)
CPT/HCPCS: 26600; 99204

== ENCOUNTER 2025-01-08 08:56 | Outpatient (REF) | payer MEDICAID, SELFPAY ==
--- NOTE | ~2025-01-08 | XR_ITS ---
EXAMINATION: XR HAND 3 OR MORE VIEWS RIGHT HISTORY: M79.641 - Pain in right hand COMPARISON: There are comparison is made with the prior examination dated 12/31/2024. FINDINGS: Four views of the right hand are submitted. Osseous mineralization is normal. There is no fracture or dislocation. The joint spaces are preserved. The soft tissues are unremarkable. XR/XR hand RT min 3V IMPRESSION: Unremarkable examination of the right hand. Electronically signed by: Rich Lazo MD 01/08/2025 11:01 AM EDT
--- OUTSIDE RECORDS SUMMARY | 2025-01-08 10:13 | XMS_ITS | Clinical Summary ---
Author Organization [facility] Address [address] [place] [address] Care Team Providers Care Neonatal Intensive Care Unit Nurse Name Role Phone Unavailable Primary Care Provider [...] of 2) 2015 Hypertension Screening (#1) 03/13/2023 [id number] ( season) 2024 Imm-Influenza (#1) 2024 Alcohol and Drug Screen 09/26/2024 Depression Annual Screen 09/26/2024 Insurance [employer]
--- OUTSIDE RECORDS SUMMARY | 2025-01-08 10:13 | XMS_ITS | Clinical Summary ---
Author Organization [facility] ity Address [address] [place] [address] Care Team Providers Care Keg Filler Name Role Phone Unavailable Primary Care Provider [...]
== END 2025-01-08 08:57 | disposition home or self-care (01) ==
LOC: HO.HOSX 08:56
PROVIDERS: PCP Internal Medicine; Visit Provider Orthopaedic Surgery
DX: S62.316A Displaced fracture of base of fifth metacarpal bone, right hand, initial encounter for closed fracture (principal)
CPT/HCPCS: 26600; 73130; 99202

== ENCOUNTER → 2025-01-08 09:26 | Outpatient (BNV) | payer MEDICAID, SELFPAY | PROVIDERS: PCP Internal Medicine; Visit Provider Radiology Diagnostic Radiology | DX: M79.641 Pain in right hand (principal) | CPT/HCPCS: 73130 ==

== ENCOUNTER 2025-02-04 08:06 | Outpatient (AMB) | payer OTHER, SELFPAY ==
--- OUTSIDE RECORDS SUMMARY | 2025-02-04 08:11 | XMS_ITS | Clinical Summary ---
Author Organization [facility] ity Address [address] [place] [address] Care Team Providers Care Web Engineer Name Role Phone Unavailable Primary Care Provider [...]
--- OUTSIDE RECORDS SUMMARY | 2025-02-04 08:11 | XMS_ITS | Clinical Summary ---
Author Organization [facility] Address [address] [place] [address] Care Team Providers Care Special Procedures Nurse Name Role Phone Unavailable Primary Care [...] of 2) 2015 Hypertension Screening (#1) 03/13/2023 [id number] ( season) 2024 Imm-Influenza (#1) 2024 Alcohol and Drug Screen 09/26/2024 Depression Annual Screen 09/26/2024 Insurance [employer]
--- NOTE | 2025-02-04 08:13 | A.OFFVIS_ITS ---
Vital Signs 02/04/25 08:14 Height 5 ft 9 in Weight 166 lb BMI 24.5 BP 132/84 Blood Pressure Location Rt brachial Position Sitting Pulse 62 Pulse Source Pulse Oximeter Pulse Oximetry (%) 99 Oxygen Delivery Method Room Air Intake Visit Reasons: 6 month follow up MRI Intake Note: ESTABLISHED PATIENT for GERD mgmt. MRI completed Chief Complaint; Pt denies any GI sx or concerns at this time. GERD well controlled with PPI PRN. Outpatient Physical Therapist Required: No Accompanied by: Self / Same As Patient Allergies No Known Allergies [No Known Allergies*] Allergy (Verified 02/04/25 08:18) Medication List - Last Reconciled 02/04/25 by Gloria Lee, MANAGER LIGHTING-BC omeprazole 20 mg PO DAILY PRN valsartan-hydrochlorothiazide 160-25 mg 1 tab PO DAILY HPI HPI 6 month follow up MRI: Details: LAST VISIT: Postprandial abdominal bloating LUQ abdominal pain Elevated liver enzymes Nonalcoholic fatty liver Hepatomegaly GERD (gastroesophageal reflux disease) Plan Continue omeprazole daily. Avoid dietary triggers and late night snacking. Patient was encouraged to try to eat smaller meals throughout the day, however patient is doing intermittent fasting. Increased echogenicity of the pancreas, however unable to visualize pancreas well. Will send patient for MRI. Increase echogenicity of the liver and hepatomegaly seen. No lesions seen. Patient will return in the office in 6 months, sooner on as needed basis. He is agreeable to this plan and verbalizes understanding of instructions. He was given the opportunity ask questions and all questions answered. ? Thank you for allowing me to participate in his care Orders Orders MR abdomen wo/w con Today R10.12, R74.8 Medications Refilled omeprazole 20 mg PO DAILY 90 caps 2RF K21.9 TODAY'S VISIT Patient is here today for follow-up and to discuss MRI results. Patient reports that he has been feeling well. Denies any abdominal pain or discomfort. Patient reports to have good appetite. Stop taking omeprazole and denies any acid reflux, dyspepsia, dysphagia or odynophagia. Patient reports that he no longer is experiencing any abdominal pain. Moving his bowels well. MRI normal showed no hepatomegaly, no increased echogenicity of the liver, normal pancreas, normal gallbladder. [facility] Medical History GERD (gastroesophageal reflux disease) Postprandial abdominal bloating Colon cancer screening Hx of hemorrhoids Surgical History Hx of colonoscopy Family History Brother HTN (hypertension) Social History Alcohol intake: current Patient Tobacco Use Status: Never used Tobacco Current occupational status: employed Current occupation: [employer] / rt hand Review of Systems Const Denies weight gain and Denies weight loss ENT Reports no additional complaints, Denies dysphagia and Denies odynophagia Card Reports no additional complaints Resp Reports no additional complaints GI Reports abdominal pain (LLQ), Denies belching, Denies melena, Denies bloating, Denies change in bowel habits, Denies dysphagia, Denies excessive flatus, Denies dyspepsia, Reports heartburn (Occasional was not taking omeprazole), Denies diarrhea, Denies loose stools, Denies nausea, Denies odynophagia and Denies vomiting Reports no additional complaints Musc Reports no additional complaints Neuro Reports no additional complaints Psych Reports no additional complaints Endo Reports no additional complaints Physical Exam Vital Signs: Last Vital Signs Pulse 62 02/04/25 08:14 BP 132/84 02/04/25 08:14 Pulse Ox 99 02/04/25 08:14 Oxygen Delivery Method Room Air 02/04/25 08:14 BMI result Body Mass Index 24.5 Const General: healthy appearing, no acute distress and well developed Nutritional Appearance: well nourished Orientation/consciousness: patient oriented x3 HEENT Head: Yes normal to inspection, Yes normocephalic and Yes atraumatic Face and sinus: Yes normal facial exam Mouth: Normal oral and palatal mucosa present Throat: Yes posterior oropharynx normal, Yes tonsils normal and Yes uvula midline Eyes General: appearance normal, both eyes and all related structures Neck Neck: Yes normal visual inspection, Yes full ROM and Yes trachea midline Thyroid: Thyroid normal Resp Effort & Inspection: normal respiratory effort, able to speak in complete sentences, no tracheal deviation and symmetric chest movement Auscultation: clear to auscultation bilaterally Cardio Rate: regular rate Heart sounds: S1 normal heart sound present and S2 normal heart sound present GI Inspection: Yes normal to inspection and No distended Palpation (GI): Soft to palpation, not firm, nontender and No hepatosplenomegaly present Auscultation: normal bowel sounds General: Yes no CVA tenderness Back/Spine/Pelvis Back: no CVA tenderness Skin General skin exam: elasticity normal, turgor normal and dry skin Neuro General: patient oriented x3 Psych Appearance: grossly normal Mental Status: mental status grossly normal Results Reviewed Results Reviewed: MRI OF ABDOMEN 10/01/2024 FINDINGS: The liver is normal in size. There is no significant loss of signal intensity within the liver on opposed phase imaging to suggest steatosis. The hepatic and portal veins patent. There is no intra or extrahepatic biliary ductal dilatation. There is no enhancing liver mass. The gallbladder, spleen, pancreas, adrenals, and kidneys are unremarkable. No retroperitoneal lymphadenopathy or ascites is identified in the upper abdomen. MR/MR abdomen wo/w con IMPRESSION: Unremarkable MRI of the abdomen without and with contrast. There is no evidence of hepatic steatosis or a liver mass. Assessment & Plan Assessment & Plan (1) Postprandial abdominal bloating: Code(s): R14.0 - Abdominal distension (gaseous) Category: Medical (2) LUQ abdominal pain: Code(s): R10.12 - Left upper quadrant pain Category: Medical (3) GERD (gastroesophageal reflux disease): Code(s): K21.9 - Gastro-esophageal reflux disease without esophagitis Category: Medical Qualifiers: Esophagitis presence: esophagitis presence not specified Qualified Code(s): K21.9 - Gastro-esophageal reflux disease without esophagitis (4) Elevated liver enzymes: Code(s): R74.8 - Abnormal levels of other serum enzymes (5) Nonalcoholic fatty liver: Code(s): K76.0 - Fatty (change of) liver, not elsewhere classified (6) Hepatomegaly: Code(s): R16.0 - Hepatomegaly, not elsewhere classified Plan Continue avoiding dietary triggers. Patient will call our office if his symptoms return. Patient reports that he stopped omeprazole and for now he does not have any acid reflux.. Patient will follow-up in 1 year. He will call our office if you have any GI concerning symptoms. He is agreeable to this plan and verbalizes understanding of instructions. He was given the opportunity to ask questions and all questions answered. Thank you for allowing me to participate in his care Coding Level of Care Code Est Pt Level 3 (47390) Diagnoses Postprandial abdominal bloating R14.0 LUQ abdominal pain R10.12 Gastroesophageal reflux disease, unspecified whether esophagitis present K21.9 Esophagitis presence: esophagitis presence not specified Elevated liver enzymes R74.8 Nonalcoholic fatty liver K76.0 Hepatomegaly R16.0 Time Spent (min) 25 Comment 15 minutes spent with patient and additional 10 minutes spent reviewing his records
[2025-02-04 08:14] VITALS: BP 132/84; PULSE 62; O2SAT 99; BMI 24.5
== END 2025-02-04 08:37 | disposition home or self-care (01) ==
LOC: HO.HGI 08:06
PROVIDERS: PCP Internal Medicine; Visit Provider Nurse Practitioner Family
DX: R14.0 Abdominal distension (gaseous) (principal); R10.12 Left upper quadrant pain; K21.9 Gastro-esophageal reflux disease without esophagitis; R74.8 Abnormal levels of other serum enzymes; K76.0 Fatty (change of) liver, not elsewhere classified; R16.0 Hepatomegaly, not elsewhere classified
CPT/HCPCS: 99213

== ENCOUNTER → 2025-02-04 08:06 | Outpatient (BNVA) | payer OTHER, SELFPAY | PROVIDERS: PCP Internal Medicine; Visit Provider Nurse Practitioner Family | DX: K21.9 Gastro-esophageal reflux disease without esophagitis (principal); K76.0 Fatty (change of) liver, not elsewhere classified; R14.0 Abdominal distension (gaseous); R10.12 Left upper quadrant pain; R74.8 Abnormal levels of other serum enzymes; R16.0 Hepatomegaly, not elsewhere classified | CPT/HCPCS: 99212 ==

== ENCOUNTER 2025-02-05 10:07 | Outpatient (REF) | payer OTHER, SELFPAY ==
--- NOTE | ~2025-02-05 | XR_ITS ---
EXAMINATION: XR HAND, RIGHT CLINICAL INFORMATION: M79.641 - Pain in right hand COMPARISON: January 08, 2025. TECHNIQUE: PA, lateral, and oblique views of the right hand. FINDINGS: The metacarpal bones are intact. The phalanges are intact with normal alignment. No subcutaneous emphysema. Mild asymmetric joint space narrowing involving the proximal and distal interphalangeal joints of the digits. Sclerosis along the articular surface of the radius and asymmetric joint space narrowing at the radiocarpal joint space. No subcutaneous emphysema. No metallic or radiopaque foreign body. 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 Electronically signed by: Serg Valiente MD 02/05/2025 11:54 AM EDT
--- OUTSIDE RECORDS SUMMARY | 2025-02-06 11:05 | XMS_ITS | Clinical Summary ---
Author Organization [facility] Address [address] [place] [address] Care Team Providers Care Painter Maintenance Name Role Phone Unavailable Primary Care Provider [...] of 2) 2015 Hypertension Screening (#1) 03/13/2023 [id number] ( season) 2024 Imm-Influenza (#1) 2024 Alcohol and Drug Screen 09/26/2024 Depression Annual Screen 09/26/2024 Insurance DELTA DENT[employer]
--- OUTSIDE RECORDS SUMMARY | 2025-02-06 11:05 | XMS_ITS | Clinical Summary ---
Author Organization [facility] ity Address [address] [place] [address] Care Team Providers Care Medical Staff Manager Name Role Phone Unavailable Primary Care Provider [...]
== END 2025-02-05 10:08 | disposition home or self-care (01) ==
LOC: HO.HOSX 10:07
PROVIDERS: Visit Provider Orthopaedic Surgery
DX: M79.641 Pain in right hand (principal); S62.316A Displaced fracture of base of fifth metacarpal bone, right hand, initial encounter for closed fracture
CPT/HCPCS: 73130; 99212

== ENCOUNTER 2025-02-05 11:15 | Outpatient (AMB) | payer OTHER, SELFPAY ==
--- NOTE | 2025-02-05 11:43 | A.OFFVIS_ITS ---
Intake Visit Reasons: OV-5th MC base FC of R hand-DOI 12/30/24-w/xrays Intake Note: Faith 59 year old right hand dominant male presents today for a follow up for his right hand injury to his 5th MC base fracture from 12/30/24. At his last visit he was placed in a velcro wrist splint, to be worn like a cast for 4 weeks. Patient reports that he has ongoing pain at the ulnar side of palm. States his discomfort presents with use of his hand, or with accidentally bumping his hand. It sounds like he has not been wearing his splint but occasionally in this 1st 4 weeks after his fracture. Allergies No Known Allergies [No Known Allergies*] Allergy (Verified 02/05/25 11:46) HPI HPI OV-5th MC base FC of R hand-DOI 12/30/24-w/xrays: Details: Faith is a 59 year old right hand dominant man who returns for his right 5th metacarpal fracture, S/P fall, DOI 12/30/24. He was seen in the ED and splinted on 12/31/24. He complains of pain in his hand, primarily the ulnar aspect, which worsens with overuse or when he bumps his hand against a surface. He has been wearing his splint with daily activities, but he would remove this when at home and when sleeping He denies any numbness or tingling. 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 No tenderness over the distal radius, DRUJ, or distal ulna Radiographs: 3 views of the right hand were taken and viewed by me today in clinic. They show a 5th metacarpal base fracture, comminuted, minimally displaced with satisfactory fracture alignment and evidence of interval bony healing Assessment & Plan Assessment & Plan (1) Fracture of base of fifth metacarpal bone of right hand: Code(s): S62.316A - Displaced fracture of base of fifth metacarpal bone, right hand, initial encounter for closed fracture Category: Medical Plan Assessment & Plan: 1. Right 5th metacarpal base fracture, comminuted non-displaced S/P fall, DOI: 12/30/24 I educated him about this condition and the importance of not doing too much with this hand. We will continue to manage this conservatively, and he is in agreement He will continue to wear his splint with daily activities out of the house, particularly at work or at scientology. He can discontinue this at home. he should wear it at night for the next week or two if he continues to have pain. I discussed activity modifications, he is to lift nothing heavier than a cellphone for the next 4 weeks. No heavy gripping, pinching, lifting, impact activities, or falls He will perform gentle ROM exercises at home He will follow up in 4 weeks, no X-rays unless he has a fall or new injury Scribed for Nakita Roper MD by Irvin Cabezas, medical sociologist, on 02/05/25 at 12:05 PM, EST. Orders: Orders XR hand RT min 3V Today M79.641 - Pain in right hand Coding Level of Care Code Global (92222) Diagnoses Fracture of base of fifth metacarpal bone of right hand S62.316A
--- OUTSIDE RECORDS SUMMARY | 2025-02-05 12:43 | XMS_ITS | Clinical Summary ---
Author Organization [facility] Address [address] [place] [address] Care Team Providers Care Design Engineering Specialist Name Role Phone Unavailable Primary Care Provider [...] of 2) 2015 Hypertension Screening (#1) 03/13/2023 [id number] ( season) 2024 Imm-Influenza (#1) 2024 Alcohol and Drug Screen 09/26/2024 Depression Annual Screen 09/26/2024 Insurance DELTA DENT[employer]
== END 2025-02-05 12:13 | disposition home or self-care (01) ==
LOC: HO.HOS 11:16
PROVIDERS: PCP Internal Medicine; Visit Provider Orthopaedic Surgery
DX: S62.316A Displaced fracture of base of fifth metacarpal bone, right hand, initial encounter for closed fracture (principal)
CPT/HCPCS: 99024

== ENCOUNTER → 2025-02-05 11:21 | Outpatient (BNV) | payer OTHER, SELFPAY | PROVIDERS: Visit Provider Radiology Diagnostic Radiology | DX: M19.041 Primary osteoarthritis, right hand (principal) | CPT/HCPCS: 73130 ==

== ENCOUNTER 2025-03-25 07:11 | Outpatient (REF) | payer OTHER, SELFPAY ==
--- NOTE | ~2025-03-25 | XR_ITS ---
EXAMINATION: XR SHOULDER, LEFT CLINICAL INFORMATION: M25.512 - Pain in left shoulder COMPARISON: None available. TECHNIQUE: AP external rotation, Grashey, scapular Y, and axillary views of the left shoulder. FINDINGS: No acute cortical disruption or malalignment. No lytic or blastic lesions. XR/XR shoulder LT min 2V IMPRESSION: No acute fracture or dislocation. No gross degenerative changes. Electronically signed by: Serg Valiente MD 03/25/2025 11:25 AM EDT
--- OUTSIDE RECORDS SUMMARY | 2025-03-26 07:13 | XMS_ITS | Clinical Summary ---
Author Organization [facility] ity Address [address] [place] [address] Care Team Providers Care Teacher Nursery [employer] Name Role Phone Unavailable Primary Care Provider [...]
--- OUTSIDE RECORDS SUMMARY | 2025-03-26 07:13 | XMS_ITS | Clinical Summary ---
Author Organization [facility] Address [address] [place] [address] Care Team Providers Care Hard Hat Diver Name Role Phone Unavailable Primary Care Provider [...] 2010 Fecal DNA 2010 Flexible Sigmoidoscopy 2010 Imm-Pneumococcal 50+ (1 of 1 - PCV) 2015 Imm-Zoster, Recombinant (1 of 2) 2015 Hypertension Screening (#1) 03/13/2023 [id number] ( season) 2024 Alcohol and Drug Screen 09/26/2024 Depression Annual Screen 09/26/2024 Imm-Influenza (Season Ended) 2025 Insurance DELTA DENTAL
--- OUTSIDE RECORDS SUMMARY | 2025-03-26 07:13 | XMS_ITS | Patient Health Record ---
Author Organization [facility] Address [address] [place] [id number] Care Team Providers Care Applications Support Lead Name Role Phone Melida Whalen Primary Care Provider Unavailab Rich Castellano Unavailable [phone] Reason For Referral No Information Medications Medication SIG (Take, Route, Fr equency, Duration) Notes Start Date End Date Status Bentyl 10 MG 1-2 capsules Orally TID prn abdominal bloating/cramps/discomfort for 30 day(s) 02/21/2015 Not-Taking Problems Problem Type SNOMED Code ICD Code Onset Dates Problem Status W/U Status Risk Notes Problem [id number] Encounter for screening for malignant neoplasm of colon (Z12.11) Active confirmed Problem Screening for malignant neoplasm of rectum ([id number]) Encounter for screening for malignant neoplasm of rectum (Z12.12) Active confirmed Problem [id number] Abdominal pain, LLQ (R10.32) Active confirmed Plan Of Treatment Future Test Test Name Order Date COLONOSCOPY 11/20/2015 Insurance Providers Payer Name Payer Address Payer Phone Subscriber Number Group Number Insured Name Patient Relationship to Insured Coverage Start Date Coverage End Date HEALTH SAF[employer]Y NET OFFICE - do not use do not use [address] [place] [address] we do not accept this ins LONI PRADHAN Self - patient is the insured MEDICAID OF [employer] [address] [place] [address] [id number] LONI PRADHAN Self - patient is the insured Medical (General) History Medical History History ICD Code Denies MS,DM,CVA,Lung disease,renal dise ase Kidney stones Chronic LLQ pain with negati ve workups including ultrasounds and CAT scans--a trial of dicyclomine was not successful--this has been going on since at least 2013
== END 2025-03-25 07:12 | disposition home or self-care (01) ==
LOC: HO.HOSX 07:11
PROVIDERS: Visit Provider Physician Assistant
DX: M25.512 Pain in left shoulder (principal); M25.812 Other specified joint disorders, left shoulder; M75.82 Other shoulder lesions, left shoulder
CPT/HCPCS: 20610; 73030; 99212; J1010; J2003

== ENCOUNTER 2025-03-25 10:53 | Outpatient (AMB) | payer OTHER, SELFPAY ==
--- NOTE | 2025-03-25 11:10 | MHC.OFFVIS ---
Intake Visit Reasons: New prob- L shoulder pain, limited ROM, x months Intake Note: Faith is a 59 year old right hand dominant male who presents today as an established patient with complaints of left shoulder and limited ROM. Patient reports pain started 2-3 years ago that is located around his cuff area. He states pain radiates down his arm all the way to his fingertips. Patient reports has no history of previous injury to cause pain. He states he has had no previous treatment. Denies numbness and tingling. Allergies No Known Allergies (No Known Allergies*) Allergy (Verified 03/25/25 11:17) Medication List - Last Reconciled 03/25/25 by Cinda Bolaños PA-C valsartan-hydrochlorothiazide 160-25 mg 1 tab PO DAILY HPI HPI New prob- L shoulder pain, limited ROM, x months: Details: 59 yo male presents to the office today for left shoulder pain x2-3 years, he states this year the pain has progressed. He has diff with lifting the arm over head and reaching. He cannot reach outward quick due to pain. He denies weakness. He has no diff with sleeping unless sleeping on the left side. He does experience some pain down the arm, but denies n/t. No treatment to date. 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 Forward flexion to 100 degrees. External rotation limited to 50 degrees. Internal rotation limited to back pocket. He has mild tenderness over the proximal biceps tendon and discomfort with Gilbert. 5/5 rotator cuff strength. Neurovascularly intact. Office Procedures AMB Joint Injection/Aspiration Joint Injection/Aspiration Primary Site: left shoulder Prep: site was prepped using aseptic technique, ethochloride spray was applied and injection warnings given Injected: 80 mg of, DepoMedrol, with 8 mL of, 1% plain lidocaine and in the subcromial space Approach Used: posterolateral Procedure: The patient tolerated the procedure well and there was some relief with the local anesthesia Coding - Glenohumeral/Tronchanteric Bursa/Intraarticular Procedure code (CPT) selection complete Results Reviewed Results Reviewed: X-rays of the left shoulder obtained in the office today and reviewed by me show type 2 acromion Assessment & Plan Assessment & Plan (1) Impingement of left shoulder: Code(s): M25.812 - Other specified joint disorders, left shoulder Category: Medical (2) Tendonitis of left rotator cuff: Code(s): M75.82 - Other shoulder lesions, left shoulder Category: Medical Plan We discussed options today which include conservative management with physical therapy which was ordered today. We also discussed the benefits of a steroid injection to help with his acute inflammation and manage his pain while he gets into physical therapy. An injection was performed today of the left shoulder which the patient tolerated well. Patient will increase activities as tolerated and if there is any questions or concerns going forward the patient will contact our office otherwise follow up as needed. Orders: Orders XR shoulder LT min 2V Today M25.512 - Pain in left shoulder PT Evaluation and Treatment Today M25.812 - Other specified joint disorders, left shoulder, M75.82 - Other shoulder lesions, left shoulder Coding Level of Care Code New Pt Level 3 (29978) Complex EM visit Add On G2211 Diagnoses Impingement of left shoulder M25.812 Tendonitis of left rotator cuff M75.82 CPT Codes Coding - Joint 7: 51049 - Glenohumeral/Tronchanteric Bursa/Intraarticular ([id number])
--- OUTSIDE RECORDS SUMMARY | 2025-03-25 11:41 | XMS_ITS | Clinical Summary ---
Author Organization [facility] ity Address [address] [place] [address] Care Team Providers Care Cleaning Maid Name Role Phone Unavailable Primary Care Provider [...]
== END 2025-03-25 12:10 | disposition home or self-care (01) ==
LOC: HO.HOS 10:53
PROVIDERS: PCP Internal Medicine; Visit Provider Physician Assistant
DX: M25.512 Pain in left shoulder (principal); M25.812 Other specified joint disorders, left shoulder; M75.82 Other shoulder lesions, left shoulder
CPT/HCPCS: 20610; 99213

== ENCOUNTER → 2025-03-25 10:54 | Outpatient (BNV) | payer OTHER, SELFPAY | PROVIDERS: Visit Provider Radiology Diagnostic Radiology | DX: M25.512 Pain in left shoulder (principal) | CPT/HCPCS: 73030 ==

== ENCOUNTER 2025-04-02 12:38 | Outpatient (AMB) | payer OTHER, SELFPAY ==
--- NOTE | 2025-04-02 12:45 | MHC.OFFVIS ---
Vital Signs 04/02/25 12:53 Height 5 ft 9 in Weight 166 lb BMI 24.5 Intake Visit Reasons: OV-5th base FC of R hand-DOI 12/30/24-F/U Intake Note: Faith 59 year old right hand dominant male presents today for a follow up for his right hand injury to his 5th MC base fracture from 12/30/24. At his last visit he was advise to continue to wear his splint with daily activities out of the house, particularly at work or at restoration, he is to lift nothing heavier than a cellphone for the next 4 weeks. No heavy gripping, pinching, lifting, impact activities. He was also advise to start doing gentle ROM exercises at home. States he has very little pain when his hand is squeezed. Allergies No Known Allergies (No Known Allergies*) Allergy (Verified 04/02/25 12:54) HPI HPI OV-5th base FC of R hand-DOI 12/30/24-F/U: Details: Faith is a 59 year old right hand dominant man who returns for his right 5th metacarpal fracture, S/P fall, DOI 12/30/24. He says he is doing well overall. He complains of some pain in his hand, primarily the ulnar aspect, when his hand is squeezed, but denies any pain at rest or with daily use. All in all however his hand is doing better. He has been wearing his wrist splint as instructed. He denies any numbness or tingling. 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 Review of Systems Const All systems reviewed & are unremarkable except as noted in HPI and below Physical Exam Vital Signs: BMI result Body Mass Index 24.5 Const General: no acute distress and alert Orientation/consciousness: patient oriented x3 Neuro General: patient oriented x3 Extrem Other: Evaluation of Right Upper Extremity: The patient is alert, oriented, and in no acute distress Neuro: Median, Ulnar, Radial nerves motor and sensory intact Vascular: Cap refill brisk ROM: He can make a tight fist and extend all his digits, with good strength and no pain No dorsal subluxation of the 5th CMC joint when making a tight fist No rotational mal-alignment General: No tenderness over the fx site with firm palpation both from dorsal and from ulnar Some more mild pain at the fracture site when the metacarpal head when was squeezed, such as in a handshake No tenderness over the distal radius, DRUJ, or distal ulna Psych Appearance: grossly normal Affect: normal affect Attitude: cooperative Assessment & Plan Assessment & Plan (1) Fracture of base of fifth metacarpal bone of right hand: Code(s): S62.316A - Displaced fracture of base of fifth metacarpal bone, right hand, initial encounter for closed fracture Category: Medical Plan Assessment & Plan: 1. Right 5th metacarpal base fracture, comminuted non-displaced S/P fall, DOI: 12/30/24 I educated him about this condition He appears to be doing well with good improvement. We will continue to manage this conservatively, and he is in agreement He can discontinue use of the splint except for situations where he thinks people want to shake his hand. Other than hand shaking activities, it sounds like he can resume all activities as tolerated. He will perform gentle ROM exercises at home He will follow up prn Scribed for Nakita Roper MD by Irvin Cabezas medical review coordinator, on 04/02/25 at 1:05 PM, EST. Coding Level of Care Code Global (42470) Diagnoses Fracture of base of fifth metacarpal bone of right hand S62.316A
[2025-04-02 12:53] VITALS: BMI 24.5
--- OUTSIDE RECORDS SUMMARY | 2025-04-02 13:20 | XMS_ITS | Clinical Summary ---
Author Organization [facility] ity Address [address] [place] [address] Care Team Providers Care Fiberglass Technician Name Role Phone Unavailable Primary Care Provider [...] 2023-2 5 season) 2024 Influenza Vaccine (#1) 2025 RSV Immunization Adult Patie nts (1 [...]
--- OUTSIDE RECORDS SUMMARY | 2025-04-02 13:20 | XMS_ITS | Patient Health Record ---
Author Organization [facility] Address [address] [place] [id number] Care Team Providers Care Sample Clerk Name Role Phone Melida Whalen Primary Care Provider Unavailab Rich Castellano Unavailable [phone] Reason For Referral No Information Medications Medication SIG (Take, Route, Fr equency, Duration) Notes Start Date End Date Status Bentyl 10 MG 1-2 capsules Orally TID prn abdominal bloating/cramps/discomfort for 30 day(s) 02/21/2015 Not-Taking Problems Problem Type SNOMED Code ICD Code Onset Dates Problem Status W/U Status Risk Notes Problem [id number] Encounter for screening for malignant neoplasm of colon (Z12.11) Active confirmed Problem Screening for malignant neoplasm of rectum (590993164) Encounter for screening for malignant neoplasm of rectum (Z12.12) Active confirmed Problem [id number] Abdominal pain, LLQ (R10.32) Active confirmed Plan Of Treatment Future Test Test Name Order Date COLONOSCOPY 11/20/2015 Insurance Providers Payer Name Payer Address Payer Phone Subscriber Number Group Number Insured Name Patient Relationship to Insured Coverage Start Date Coverage End Date HEALTH SAFETY NET OFFICE - do not use do not use [address] [place] [address] we do not accept this ins LONI PRADHAN Self - patient is the insured MEDICAID OF [employer] [address] [place] [address] [phone] [id number] LONI PRADHAN Self - patient is the insured Medical (General) History Medical History History ICD Code Denies CO,DM,CVA,Lung disease,renal dise ase Kidney stones Chronic LLQ pain with negati ve workups including ultrasounds and CAT scans--a trial of dicyclomine was not successful--this has been going on since at least 2013
--- OUTSIDE RECORDS SUMMARY | 2025-04-02 13:20 | XMS_ITS | Clinical Summary ---
Author Organization [facility] Address [address] [place] [address] Care Team Providers Care Career Technical Education Instructor Name Role Phone Unavailable Primary Care Provider [...] of 2) 2015 Hypertension Screening (#1) 03/13/2023 [id number] ( season) 2024 Alcohol and Drug Screen 09/26/2024 Depression Annual Screen 09/26/2024 Imm-Influenza (Season Ended) 2025 Insurance [facility]
== END 2025-04-02 13:06 | disposition home or self-care (01) ==
LOC: HO.HOS 12:39
PROVIDERS: Visit Provider Orthopaedic Surgery
DX: S62.316A Displaced fracture of base of fifth metacarpal bone, right hand, initial encounter for closed fracture (principal)
CPT/HCPCS: 99024

== ENCOUNTER → 2025-04-02 12:38 | Outpatient (BNVA) | payer OTHER, SELFPAY | PROVIDERS: Visit Provider Orthopaedic Surgery | DX: S62.316A Displaced fracture of base of fifth metacarpal bone, right hand, initial encounter for closed fracture (principal); W01.0XXA Fall on same level from slipping, tripping and stumbling without subsequent striking against object, initial encounter; Y93.9 Activity, unspecified; Y92.9 Unspecified place or not applicable; Y99.9 Unspecified external cause status | CPT/HCPCS: 99212 ==